=== PATIENT | male | born 1940 | race Caucasian/White ===

== ENCOUNTER 2024-11-04 22:13 | Emergency (ER) | payer OTHER, SELFPAY ==
[2024-11-04 22:21] VITALS: BP 146/82; PULSE 71; RESP 16; TEMP 36.6; O2SAT 96
--- NOTE | 2024-11-05 00:14 | ED.EAR ---
HPI - Ear Problem General Chief complaint: Ear Stated complaint: BLEEDING FROM LEFT EAR Time Seen by Provider: 11/04/24 23:49 Source: patient Mode of arrival: ambulatory Limitations: no limitations History of Present Illness HPI Narrative: This is a 78-year-old male that presents emergency department for bleeding from the left ear. He had a excision today by Dermatology at [place]. Has been bleeding since he got home. He is not on any blood thinners. Related Data Allergies Allergy/AdvReac Type Severity Reaction Status Date / Time No Known Allergies Allergy Unknown Verified 11/04/24 22:31 Review of Systems Review of Systems: CONSTITUTIONAL: Denies fever SKIN: Reports bleeding and pain All systems reviewed & are unremarkable except as noted in HPI and below PMFSH Past Medical History Medical History (Updated 11/05/24 @ 01:26 by Karin Blanchard PA-C) History of hypertension Social History Social History (Updated 11/05/24 @ 00:15 by Karin Blanchard PA-C) Alcohol intake: current Exam Narrative: GENERAL: Well-appearing, well-nourished, and in no acute distress. HEAD: Normocephalic, atraumatic. EYES: EOMI. ENT: Left TM pearly prado non-bulging. Left external auditory canal with small amount of blood present, coming from the outer ear. Outer ear with large excision, steadily oozing blood EXTREMITIES: Normal range of motion. No edema. SKIN: Warm, dry, no rash. NEURO: No focal deficits. Alert and oriented x3. PSYCH: Normal mood and affect Course Course Emergency Course: Patient's bleeding has stopped after Surgicel pressure Consultations Consultation #1: Spoke with patient's mottler machine feeder on-call. He may follow-up today any time after 7:00 a.m. for further evaluation and management Date: 11/04/24 Vital Signs Vital signs: Vital Signs Temperature 97.9 F 11/04/24 22:21 Pulse Rate 71 11/04/24 22:21 Respiratory Rate 16 11/04/24 22:21 Blood Pressure 146/82 H 11/04/24 22:21 Pulse Oximetry 96 11/04/24 22:21 Oxygen Delivery Room Air 11/04/24 22:21 Temperature 97.9 F 11/04/24 22:21 Pulse Rate 71 11/04/24 22:21 Respiratory Rate 16 11/04/24 22:21 Blood Pressure 146/82 H 11/04/24 22:21 Pulse Oximetry 96 11/04/24 22:21 Oxygen Delivery Room Air 11/04/24 22:21 Procedures Other Procedure Procedure 1: Other Procedure: Bleeding to the left external ear controlled with surgical Medical Decision Making MDM Narrative Medical decision making narrative: Patient presents to the emergency department for bleeding from excision site to the left outer ear. Bleeding was controlled with Surgicel and pressure. Bandage applied. Spoke with patient's mottler machine feeder on-call. He may follow-up today any time after 7:00 a.m. for further evaluation and management Vital Signs Vital Signs: Vital Signs Temperature 97.9 F 11/04/24 22:21 Pulse Rate 71 11/04/24 22:21 Respiratory Rate 16 11/04/24 22:21 Blood Pressure 146/82 H 11/04/24 22:21 Pulse Oximetry 96 11/04/24 22:21 Oxygen Delivery Room Air 11/04/24 22:21 Temperature 97.9 F 11/04/24 22:21 Pulse Rate 71 11/04/24 22:21 Respiratory Rate 16 11/04/24 22:21 Blood Pressure 146/82 H 11/04/24 22:21 Pulse Oximetry 96 11/04/24 22:21 Oxygen Delivery Room Air 11/04/24 22:21 Critical Care Time Critical Care Time Critical Care Time: No Discharge Plan Discharge Clinical Impression: Bleeding from left ear Patient Disposition: Home, Self-Care Condition: Improved Instructions: Acute Wounds (ED) Additional Instructions: Return to the emergency department if you experience bleeding and cannot control, or any other symptoms that are concerning to you If you have any further trouble with bleeding, hold pressure to the area for 15 minutes Follow-up with your mottler machine feeder. They said you could come in any time after 7:00 a.m. to be evaluated today Follow-up/Referrals: Yogi José MD [Primary Care Provider] -
[2024-11-05] MEDS: HYDROcodone/acetaminophen (*CRX) 5-325 MG TABLET 1 TAB PO (00:38)
[2024-11-05] MEDS: CELLULOSE OXIDIZED 2 x 14 INCH 1 PKT XX (00:39)
[2024-11-05 02:17] VITALS: BP 142/80; PULSE 73; RESP 17; O2SAT 97
--- OUTSIDE RECORDS SUMMARY | 2024-11-12 05:00 | XMS_ITS | Summary of Care ---
Author Organization [facility] Address [address] [place] [id number] Care Team Providers Care Wan Support Specialist Name Role Phone Mabel Mckeon Primary Care Physician Encounter [facility] Date(s): 10/17/20 - 10/17/20 [facility] [address] [address] Discharge Disposition: Home Attending Physician: Zhang Mejia MD Allergies, Adverse Reactions, Alerts Substance Reaction Severity Status sulfa drugs lips swelling Active Medications acetaminophen 500 mg oral tablet 1 Tab, Q6H, PO, 0 Number of Refills Start Date: 09/11/20 Status: Ordered amLODIPine 10 mg oral tablet 1 Tab, daily, PO, 30 Tab, 0 Number of Refills, TAB Start Date: 09/11/20 Status: Ordered cholecalciferol 1000 intl units (25 mcg) oral tablet 25 mcg, Q24H, PO, 0 Number of Refills Start Date: 09/11/20 Status: Ordered docusate sodium 100 mg oral tablet 1 Tab, BID, PO, 0 Number of Refills Start Date: 09/11/20 Status: Ordered folic acid 0.4 mg oral tablet 1 Tab, Q24H, PO, 0 Number of Refills Start Date: 09/11/20 Status: Ordered furosemide 20 mg oral tablet 1 Tab, daily, PO, 30 Tab, 0 Number of Refills, TAB Start Date: 09/11/20 Status: Ordered isosorbide mononitrate 10 mg oral tablet 1 Tab, BID, PO, 0 Number of Refills Start Date: 09/11/20 Status: Ordered melatonin 3 mg oral tablet, extended release 1 Tab, AT BEDTIME, PO, Maintenance, PRN, 09/11/20 18:13:00 SPINNING OPERATOR, 0 Number of Refills, for insomnia, ERT Start Date: 09/11/20 Status: Ordered metoprolol succinate 50 mg oral tablet, extended release 1 Tab, BID, PO, 30 Tab, 0 Number of Refills, ERT Start Date: 09/11/20 Status: Ordered MiraLax oral powder for reconstitution 17 gm, Q24H, PO, Maintenance, 0.5 packet each night, 09/11/20 18:15:00 SPINNING OPERATOR, 0 Number of Refills Start Date: 09/11/20 Status: Ordered nystatin 100,000 units/g topical powder 1 Apply, BID, TOP, Maintenance, 09/11/20 18:11:00 SPINNING OPERATOR, 0 Number of Refills Start Date: 09/11/20 Status: Ordered omeprazole 40 mg oral delayed release capsule 1 Cap, daily, PO, 30 Cap, 0 Number of Refills, EC CAP Start Date: 09/11/20 Status: Ordered potassium chloride 10 mEq oral tablet, extended release 1 Tab, Q24H, PO, 180 Tab, 0 Number of Refills, ERT Start Date: 09/11/20 Status: Ordered rosuvastatin 20 mg oral tablet 2 Tab, AT BEDTIME, PO, 30 Tab, 11 Number of Refills Start Date: 09/11/20 Status: Ordered sertraline 100 mg oral tablet 0.5 Tab, daily, PO, 30 Tab, 0 Number of Refills, TAB Start Date: 09/11/20 Status: Ordered tamsulosin 0.4 mg oral capsule 1 Cap, daily, PO, 90 Cap, 0 Number of Refills, CAP Start Date: 09/11/20 Status: Ordered traMADol 50 mg oral tablet 1 Tab, Q4H, PO, 60 Tab, PRN, 0 Number of Refills, for pain, TAB Start Date: 09/11/20 Status: Ordered warfarin 3 mg oral tablet 1 Tab, daily, PO, 30 Tab, 0 Number of Refills Start Date: 09/11/20 Status: Ordered Social History Social History Type Response
--- OUTSIDE RECORDS SUMMARY | 2024-11-12 05:00 | XMS_ITS | Summary of Care ---
Author Organization [facility] Address [address] [place] [phone] Care Team Providers Care Reservationist Name Role Phone Mabel Mckeon Primary Care Physician Encounter [facility] Date(s): 10/31/20 - 10/31/20 [facility] [id number] [place] [address] Discharge Disposition: Home Attending Physician: Zhang Mejia MD Problem List Condition Effective Dates Status Health Status Inform ant Acid reflux(Confirmed) Active Atrial fibrillation(Confirmed) Active CAD (coronary artery disease)(Confirmed) Active Depression(Confirmed) Active Heart murmur(Confirmed) Active High cholesterol(Confirmed) Active Hypertension(Confirmed) Active Right shoulder pain(Confirmed) Active Allergies, Adverse Reactions, Alerts Substance Reaction Severity Status sulfa drugs lips swelling Active Medications acetaminophen 500 mg oral tablet 1 Tab, Q6H, PO, PRN, 0 Number of Refills, pain Start Date: 09/11/20 Status: Ordered amLODIPine 10 mg oral tablet 1 Tab, daily, PO, 30 Tab, 0 Number of Refills, TAB Start Date: 09/11/20 Status: Ordered cholecalciferol 1000 intl units (25 mcg) oral tablet 25 mcg, Q24H, PO, 0 Number of Refills Start Date: 09/11/20 Status: Ordered clindamycin 300 mg oral capsule 1 Cap, Q6H, PO, 14 Day(s), 56 Cap, 11/14/20, 0 Number of Refills, 0, Route to Pharmacy Electronically, [facility], [place], [place], 198.1, cm, 10/31/20 8:29:00 APPLIED EXERCISE PHYSIOLOGIST, Height, 161.1, kg, 10/31/20 8:29:00 APPLIED EXERCISE PHYSIOLOGIST, Admission Weight Start Date: 10/31/20 Stop Date: 11/14/20 Status: Ordered docusate sodium 100 mg oral [...] of Refills Start Date: 09/11/20 Status: Ordered Lovenox 40 mg/0.4 mL injectable solution 40 mg, Q24H, SQ, 10 Day(s), 10 EA, 11/05/20, 0 Number of Refills, 0, Route to Pharmacy Electronically, [facility] #[id number], 198.1, cm, 10/25/20 16:09:00 APPLIED EXERCISE PHYSIOLOGIST, Height, 159, kg, 10/25/20 16:09:00 APPLIED EXERCISE PHYSIOLOGIST, Admission Weight Start Date: 10/26/20 Stop Date: 11/05/20 Status: Ordered melatonin 3 mg oral tablet, extended release 1 Tab, AT BEDTIME, PO, Maintenance, 09/11/20 18:13:00 APPLIED EXERCISE PHYSIOLOGIST, 0 Number of Refills, ERT Start Date: 09/11/20 Status: Ordered metoprolol succinate 50 mg oral tablet, extended release 1 Tab, BID, PO, 30 Tab, 0 Number of Refills, ERT Start Date: 09/11/20 Status: Ordered MiraLax oral powder for reconstitution 17 gm, Q24H, PO, Maintenance, 0.5 packet each night, 09/11/20 18:15:00 APPLIED EXERCISE PHYSIOLOGIST, 0 Number of Refills Start Date: 09/11/20 Status: Ordered Reserve 5 mg-325 mg oral tablet 1-2 Tab, Q6H, PO, 12 Tab, Maintenance, PRN, 10/31/20 9:54:00 APPLIED EXERCISE PHYSIOLOGIST, 0 Number of Refills, 0, for pain,Route to Pharmacy Electronically, [facility], [place], [place], TAB, 198.1, cm, 10/31/20 8:29:00CST, Height, 161.1, kg, 10/31/20 8:29:00 APPLIED EXERCISE PHYSIOLOGIST, Admis... Start Date: 10/31/20 Status: Ordered nystatin 100,000 units/g topical powder 1 Apply, BID, TOP, Maintenance, 09/11/20 18:11:00 APPLIED EXERCISE PHYSIOLOGIST, 0 Number of Refills Start Date: 09/11/20 Status: Ordered omeprazole 40 mg oral delayed release capsule 1 Cap, daily, PO, 30 Cap, 0 Number of Refills, EC CAP Start Date: 09/11/20 Status: Ordered oxygen 10/25/20 16:12:00 APPLIED EXERCISE PHYSIOLOGIST, 2 LPM Start Date: 10/25/20 Status: Ordered potassium chloride 10 mEq oral [...]
--- OUTSIDE RECORDS SUMMARY | 2024-11-12 05:00 | XMS_ITS | Summary of Care ---
Author Organization [facility] Address [address] [place] [phone] Care Team Providers Care Fellmongering Machine Operator Name Role Phone Mabel Mckeon Primary Care Physician Encounter [facility] Date(s): 02/08/21 - 02/08/21 [facility] [address] [address] Discharge Disposition: Home Attending Physician: [...] Tab, AT BEDTIME, PO, Maintenance, 09/11/20 18:13:00 MEN'S FURNISHINGS SALESPERSON, 0 Number of Refills, ERT Start Date: 09/11/20 Status: Ordered metoprolol succinate 50 mg oral tablet, extended release 1 Tab, BID, PO, 30 Tab, 0 Number of Refills, ERT Start Date: 09/11/20 Status: Ordered MiraLax oral powder for reconstitution 17 gm, Q24H, PO, Maintenance, 0.5 packet each night, 09/11/20 18:15:00 MEN'S FURNISHINGS SALESPERSON, 0 Number of Refills Start Date: 09/11/20 Status: Ordered Coalgood 5 mg-325 mg oral tablet 1-2 Tab, Q6H, PO, 12 Tab, Maintenance, PRN, 10/31/20 9:54:00 MEN'S FURNISHINGS SALESPERSON, 0 Number of Refills, 0, for pain,Route to Pharmacy Electronically, [facility], [place], [place], TAB, 198.1, cm, 10/31/20 8:29:00CST, Height, 161.1, kg, 10/31/20 8:29:00 MEN'S FURNISHINGS SALESPERSON, Admis... Start Date: 10/31/20 Status: Ordered nystatin 100,000 units/g topical powder 1 Apply, BID, TOP, Maintenance, 09/11/20 18:11:00 MEN'S FURNISHINGS SALESPERSON, 0 Number of Refills Start Date: 09/11/20 Status: Ordered omeprazole 40 mg oral delayed release capsule 1 Cap, daily, PO, 30 Cap, 0 Number of Refills, EC CAP Start Date: 09/11/20 Status: Ordered oxygen 10/25/20 16:12:00 MEN'S FURNISHINGS SALESPERSON, 2 LPM Start Date: 10/25/20 Status: Ordered [...]
--- OUTSIDE RECORDS SUMMARY | 2024-11-12 05:00 | XMS_ITS | Summary of Care ---
Author Organization [facility] Address [address] [place] [phone] Care Team Providers Care Telesales Team Leader Name Role Phone Mabel Mckeon Primary Care Physician Encounter [facility] Date(s): 02/27/21 - 03/02/21 [facility] AT [address] [phone] Encounter Diagnosis Cellulitis, leg(Discharge Diagnosis) - 03/02/21 Discharge Disposition: Home with Home Health Attending Physician: Antoni Vallejo MD Admitting Physician: Antoni Vallejo MD Problem List Condition Effective Dates Status [...] Refills, pain Start Date: 09/11/20 Status: Ordered cholecalciferol 1000 intl units (25 mcg) oral tablet 25 mcg, Q24H, PO, 0 Number of Refills Start Date: 09/11/20 Status: Ordered diclofenac 1% topical gel 200 gm, QID, TOP, 24,000 gm, Maintenance, 03/02/21 10:51:00 CDT, 0 Number of Refills, 0, Route to Pharmacy Electronically, [facility], [place], [place], GEL, 198.1, cm, 02/27/21 19:04:00 CDT, Height, 171.5, kg, 02/27/21 19:04:00 CDT, Admission Weight Start Date: 03/02/21 Status: Ordered docusate sodium 100 mg oral tablet 1 Tab, BID, PO, 0 Number of Refills Start Date: 09/11/20 Status: Ordered folic acid 0.4 mg oral tablet 1 Tab, Q24H, PO, 0 Number of Refills Start Date: 09/11/20 Status: Ordered furosemide 20 mg oral tablet 2 Tab, daily, PO, 30 Tab, 0 Number of Refills, TAB Start Date: 09/11/20 Status: Ordered isosorbide mononitrate 10 mg oral tablet 1 Tab, BID, PO, 0 Number of Refills Start Date: 09/11/20 Status: Ordered linezolid 600 mg oral tablet 1 Tab, Q12H, PO, 7 Day(s), 14 Tab, 03/09/21, Can resume clindamycin once linezolid done, 0 Number of Refills, 0, Route to Pharmacy Electronically, [facility], [place], [place], TAB, 198.1, cm, 02/27/21 19:04:00 CDT, Height, 171.5, kg, 02/27/21 19:0... Start Date: 03/02/21 Stop Date: 03/09/21 Status: Ordered melatonin 3 mg oral tablet, extended release 1 Tab, AT BEDTIME, PO, Maintenance, 09/11/20 18:13:00 ELDERLY SITTER, 0 Number of Refills, ERT Start Date: 09/11/20 Status: Ordered metoprolol succinate 25 mg oral capsule, extended release 3 Cap, Q24H, PO, 270 Cap, 0 Number of Refills, 0, Route to Pharmacy Electronically, [facility], [place], [place], 198.1, cm, 02/27/21 19:04:00 CDT, Height, 171.5, kg, 02/27/21 19:04:00 CDT, Admission Weight Start Date: 03/02/21 Status: Ordered MiraLax oral powder for reconstitution 17 gm, Q24H, PO, Maintenance, 0.5 packet each night, 09/11/20 18:15:00 ELDERLY SITTER, 0 Number of Refills Start Date: 09/11/20 Status: Ordered Rio 5 mg-325 mg oral tablet 1-2 Tab, Q6H, PO, 12 Tab, Maintenance, PRN, 10/31/20 9:54:00 ELDERLY SITTER, 0 Number of Refills, 0, for pain,Route to Pharmacy Electronically, [facility], [place], [place], TAB, 198.1, cm, 10/31/20 8:29:00CST, Height, 161.1, kg, 10/31/20 8:29:00 ELDERLY SITTER, Admis... Start Date: 10/31/20 Status: Ordered nystatin 100,000 units/g topical powder 1 Apply, BID, TOP, Maintenance, 09/11/20 18:11:00 ELDERLY SITTER, 0 Number of Refills Start Date: 09/11/20 Status: Ordered omeprazole 40 mg oral delayed release capsule 1 Cap, daily, PO, 30 Cap, 0 Number of Refills, EC CAP Start Date: 09/11/20 Status: Ordered oxygen 10/25/20 16:12:00 ELDERLY SITTER, 2 LPM Start Date: 10/25/20 Status: Ordered potassium chloride 10 mEq oral tablet, extended release 1 Tab, Q24H, PO, 180 Tab, 0 Number of Refills, ERT Start Date: 09/11/20 Status: Ordered rosuvastatin 20 mg oral tablet 2 Tab, AT BEDTIME, PO, 30 Tab, 11 Number of Refills Start Date: 09/11/20 Status: Ordered sertraline 100 mg oral tablet 0.5 Tab, daily, PO, 30 Tab, Hold until linezolid is done, 0 Number of Refills, TAB Start Date: 09/11/20 Status: Ordered tamsulosin 0.4 mg oral capsule 1 Cap, daily, PO, 90 Cap, 0 Number of Refills, CAP Start Date: 09/11/20 Status: Ordered warfarin 3 mg oral tablet See Instructions, 4mg MWF, 3mg TThSaSu, 0 Number of Refills, Instructions Replace Required Details Start Date: 09/11/20 Status: Ordered Social History Social History Type Response
--- OUTSIDE RECORDS SUMMARY | 2024-11-12 05:00 | XMS_ITS | Encounter Summary ---
Author Organization [facility] Address [address] [place] [phone] Care Team Providers Care Coastal/Harbor Defense Officer Name Role Phone [facility], External Provider Primary Care Provider U navailable Reason for Visit * Auth/Cert Specialty Diagnoses / Procedures Referred By Vidhi t Referred To Contact Critical Care Medicine [facility] [address] [place] [address] Referral ID Status Reason Start Date Expiration Date Visits Re quested Visits Authorized [id number] 1 1 Encounter Details Date Type Department Care Team (Latest Contact Info) Description 12/22/2013 11:45 AM [facility] [[email or web address]] - 12/22/2013 11:59 PM [facility] [[email or web address] Hospital Encounter [facility] [address] [place] [address] Discharge Disposition: Home or Self Care Social History Tobacco Use Types Packs/Day Years Used Date Smoking Tobacco: Every Day Cigarettes Alcohol Use Standard Drinks/Week Comments Yes 0 (1 standard drink = 0.6 oz pur e alcohol) 2-4 beers/day Sex and Gender Information Value Date Recorded Sex Assigned at Not on file Gender Identity Not on file Sexual Orientation Not on file documented as of this encounter Medications at Time of Discharge Medication Sig Dispensed Refills Start Date End Date oxyCODONE (ROXICODONE) 5 mg tablet Take 1 Tab by mouth every 8 hours as needed for Pain or Pain, Moderate. 30 Tab 0 12/23/2013 sodium chloride 1 gram tablet Take 1 Tab by mouth 3 times daily. 60 Tab 1 12/23/2013 atenolol (TENORMIN) 50 mg tablet Take 1 Tab by mouth daily. 30 Tab 0 12/23/2013 ipratropium-albuterol (COMBIVENT RESPIMAT) 20-100 mcg/actuation Aerosol Take 1 Puff by inhalation every 6 hours as needed for Wheezing. budesonide-formoterol (SYMBICORT) 160-4.5 mcg/actuation HFA Aerosol Inhaler Take 2 Puffs by inhalation 2 times daily. aspirin (VAN) 325 mg tablet Take 325 mg by mouth daily. cilostazol (PLETAL) 100 mg Tablet Take 100 mg by mouth 2 times daily before meals. 10/25/2013 simvastatin (ZOCOR) 80 mg tablet Take 80 mg by mouth Daily LATE. atenolol (TENORMIN) 100 mg tablet Take 100 mg by mouth Daily LATE. 12/23/2013 lisinopril (PRINIVIL) 40 mg tablet Take 40 mg by mouth daily. 12/23/2013 hydrochlorothiazide (MICROZIDE) 12.5 mg capsule Take 12.5 mg by mouth daily. 12/23/2013 documented as of this encounter Plan of Treatment Not on file documented as of this encounter Procedures Procedure Name Priority Date/Time Associated Diagnosis Comments XR CERVICAL SPINE 2 OR 3 VIEWS Routine 12/22/2013 1:30 PM FACER OPERATOR documented in this encounter Results * XR CERVICAL SPINE 2 OR 3 VIEWS (12/22/2013 1:30 PM FACER OPERATOR) Anatomical Region Laterality Modality Spine Computed Radiogr aphy 12/22/2013 1:20 PM FACER OPERATOR Impressions 12/23/2013 2:01 PM FACER OPERATOR IMPRESSION: Mild degenerative change. No distinct fracture. Dictated from [place], [place] Narrative 12/23/2013 2:01 PM FACER OPERATOR EXAMINATION: CERVICAL SPINE, 3 VIEWS, 12/22/2013 CLINICAL HISTORY: Neck pain. FINDINGS: Examination of the cervical spine fails to demonstrate evidence of fracture, dislocation, or subluxation. There is minimal disc space narrowing at C2-C3. Procedure Note Jeff Maya MD - 12/23/2013 EXAMINATION: CERVICAL SPINE, 3 VIEWS, 12/22/2013 CLINICAL HISTORY: Neck pain. FINDINGS: Examination of the cervical spine fails to demonstrate evidence of fracture, dislocation, or subluxation. There is minimal disc space narrowing at C2-C3. IMPRESSION IMPRESSION: Mild degenerative change. No distinct fracture. Dictated from [place], [place] Bárbara Lewis NP DIAGNOSTIC IMAGING ORDERABLES documented in this encounter Visit Diagnoses Not on filedocumented in this encounter Care Teams Coastal/Harbor Defense Officer Relationship Specialty Start Date End Date [facility], External Provider [address] [place] [address] PCP - General 12/20/13 documented as of this encounter
--- OUTSIDE RECORDS SUMMARY | 2024-11-12 05:00 | XMS_ITS | Encounter Summary ---
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 Scanning ECG ORDERABLES * (ABNORMAL) BASIC METABOLIC PANEL (12/23/2013 6:20 AM CRAB FISHER) SODIUM 128(L) 135 - 145 mmol/L [facility] POTASSIUM 3.7 3.5 - 4.9 mmol/L [facility] CHLORIDE 92(L) 96 - 108 mmol/L [facility] CO2 26 22 - 30 mmol/L [facility] CALCIUM 8.4(L) 8.6 - 10.2 mg/dL [facility] BUN 7 6 - 20 mg/dL [facility] CREATININE 0.61(L) 0.67 - 1.17 mg/dL [facility] GLUCOSE 113(H) 65 - 99 mg/dL [facility] GFR, >60 >=60 mL/min/1. 7 sq meter [facility] GFR >60 >=60 mL/min/1. 7 sq meter [facility] Comment: GFR is calculated using the IDMS-Traceable Modification of Diet in Renal Disease (MDRD) Study formula and is only valid for patients 18 years or older. Further interpretative information is available in the Laboratory Services Policy Manual on the [facility] [place], [place] Intranet at: [email or web address] [email or web address]/ Blood specimen (specimen) 12/23/2013 6:20 AM CRAB FISHER 12/23/2013 6:43 AM CRAB FISHER Rizwan Medellin DANIEL CHEMISTRY ORDERABL ES [facility] CLIA# [id number] [address] [place] [address] * (ABNORMAL) CBC WITH DIFFERENTIAL (12/23/2013 6:20 AM CRAB FISHER) WBC 13.4(H) 4.0 - 9.8 K/uL [facility] RBC 3.00(L) 4.50 - 5.40 M/uL [facility] HEMOGLOBIN 10.2(L) 13.6 - 16.5 g/dL [facility] HEMATOCRIT 29.3(L) 40.0 - 48.0 % [facility] MCV 97.7 82.0 - 99.0 fL [facility] MCH 34.0(H) 27.2 - 32.6 pg [facility] MCHC 34.8 31.5 - 35.5 % [facility] PLATELETS 209 140 - 350 K/uL [facility] MPV 9.0(L) 9.3 - 12.4 fL [facility] RDW 12.9 11.5 - 14.5 % [facility] RDW-STDEV 45.9 37.1 - 48.7 fL [facility] NEUTROPHILS, SEG 83(H) 45 - 70 % [facility] . [facility] BANDS 1 0 - 5 % [facility] LYMPHOCYTES 5(L) 16 - 45 % [facility] ATYPICAL LYMPHOCYTE 4 0 - 5 % [facility] MONOCYTES 6 3 - 13 % [facility] . [facility] EOSINOPHILS 1 0 - 7 % [facility] . [facility] BASOPHILS 0 0 - 2 % [facility] PLATELET EST. Consistent w/ count Normal [facility] NEUTROPHIL ABSOLUTE 11.26(H) 1.90 - 7.00 K/uL [facility] LYMPHOCYTE ABSOLUTE 1.21 0.70 - 4.50 K/uL [facility] MONOCYTE ABSOLUTE 0.80 0.10 - 1.30 K/uL [facility] EOSINOPHIL ABSOLUTE 0.13 0.00 - 0.70 K/uL [facility] . [facility] BASOPHILS ABSOLUTE 0.00 0.00 - 0.20 K/uL [facility] RBC MORPHOLOGY Normal Normal [facility] GIANT PLATELETS Present [facility] REVIEWED ON SMEAR Plt reviewed [facility] Blood specimen (specimen) 12/23/2013 6:20 AM CRAB FISHER 12/23/2013 6:43 AM CRAB FISHER Rizwan Medellin NP HEMATOLOGY ORDERAB LES Performing Organization Address City/State/[facility] Co de Phone Number [facility] CLIA# [id number] [address] [place] [address] * (ABNORMAL) URINALYSIS (12/22/2013 6:15 PM CRAB FISHER) COLOR UA Yellow [facility] CLARITY UA Clear Clear [facility] SPECIFIC GRAVITY UA 1.021 1.001 - 1.035 [facility] PH UA 5.5 5.0 - 8.0 [facility] LEUKOCYTE ESTERASE UA Negative Negative [facility] NITRITE UA Negative Negative [facility] PROTEIN UA Trace(A) Negative [facility] GLUCOSE UA 2+(A) Negative [facility] KETONES UA Negative Negative [facility] UROBILINOGEN UA 2(H) <=1 mg/dL [facility] BILIRUBIN UA Negative Negative [facility] - . [facility] BLOOD UA Trace(A) Negative [facility] - . [facility] WBC URINE 1 0 - 3 /HPF [facility] RBC, URINE 1 0 - 3 /HPF [facility] HYALINE CAST 3(H) 0 - 2 /LPF [facility] 12/22/2013 6:15 PM CRAB FISHER 12/22/2013 6:28 PM CRAB FISHER Comment:URINE VOIDED Ramsey Rojas DO URINE ORDERABLES Performing Organization Address [facility] Co de Phone Number [facility] CLIA# [id number] [address] [place] [address] * URINALYSIS WITH REFLEX CULTURE (12/22/2013 6:15 PM CRAB FISHER) URINE CULTURE ORDER Not indicated [facility] Comment: Criteria for a reflex culture include one or more of the following: ??Abnormal nitrite, leukocyte esterase, WBCs or RBCs. ??Lack of qualifying criteria does not exclude the possiblity of a urinary tract infection. ??Dilute urine, drug interference, etc. may decrease the sensitivity of the criteria analytes. Urine, clean catch 12/22/2013 6:15 PM CRAB FISHER 12/22/2013 6:28 PM CRAB FISHER Comment:URINE VOIDED Ramsey Sidney Rojas DO URINE ORDERABLES Performing Organization Address [facility] Co de Phone Number [facility]# [id number] [address] [place] [address] * XR CERVICAL SPINE 2 OR 3 VIEWS (12/22/2013 1:30 PM CRAB FISHER) Anatomical Region Laterality Modality Spine Computed Radiogr aphy 12/22/2013 1:20 PM CRAB FISHER Impressions 12/23/2013 2:01 PM CRAB FISHER IMPRESSION: Mild degenerative change. No distinct fracture. Dictated from [facility], [place] Narrative 12/23/2013 2:01 PM CRAB FISHER EXAMINATION: CERVICAL SPINE, 3 VIEWS, 12/22/2013 CLINICAL [...] degenerative change. No distinct fracture. Dictated from [place], [place] Bárbara Lewis NP DIAGNOSTIC IMAGING ORDERABLES * ECHO COMPLETE (12/22/2013 9:01 AM CRAB FISHER) EJECTION FRACTION INTERFACE SYSTEM 12/22/2013 8:32 AM CRAB FISHER Narrative INTERFACE SYSTEM - 12/22/2013 10:21 AM CRAB FISHER [address] [address] www.[facility] centerDream Dinners[facility]/stlouismo Transthoracic Echocardiography Patient: ? Eliza Jonas MRN: ? [id number] Study ID: ?[id number] Gender: ?M : ? 1940 Age: ? 73 Race: ?CAU Height ? 172.7cm Study Date: ?12/22/2013 Weight: ?85.3kg Access. #: ? [id number] BP: ?100 / 60 *Referring Physician:* Rizwan Medellin *Ordering Physician:* ??Rizwan Medellin Set Up Mechanic Stamping Machines: ? LD Indications: Syncope / Near syncope. STUDY CONCLUSIONS: SUMMARY: - Left ventricle: The cavity size was normal. Wall thickness ??was increased. Global systolic function was normal. Wall ??motion was normal; there were no regional wall motion ??abnormalities. Diastolic function assessment consistent ??with abnormal left ventricular relaxation (grade 1 ??diastolic dysfunction). - Left atrium: The atrium was dilated. - Right ventricle: The cavity size was normal. Systolic ??function was normal. Cardiac Anatomy: LEFT VENTRICLE: ??The cavity size was normal. Wall thickness was increased. Global systolic function was normal. Wall motion was normal; there were no regional wall motion abnormalities. Diastolic function assessment consistent with abnormal left ventricular relaxation (grade 1 diastolic dysfunction). AORTIC VALVE: ?? Trileaflet; mildly thickened, mildly calcified leaflets. Cusp separation was normal. ??Doppler: Transvalvular velocity was within the normal range. ??No significant regurgitation. ?Peak velocity ratio of LVOT to aortic valve: 0.78. Valve area: 3.82cm\S\2 (Vmax). Indexed valve area: 1.87cm\S\2/m\S\2 (Vmax). ?Mean gradient: 7mm Hg (S). Peak gradient: 11mm Hg (S). AORTA: ??Aortic root: The aortic root was normal in size. MITRAL VALVE: ?? Structurally normal valve. ?? Leaflet separation was normal. Mobility was not restricted. No echocardiographic evidence for prolapse. ??Doppler: ?? No significant regurgitation. LEFT ATRIUM: ??The atrium was dilated. RIGHT VENTRICLE: ??The cavity size was normal. Systolic function was normal. PULMONIC VALVE: ?? Structurally normal valve. ?Doppler: No significant regurgitation. TRICUSPID VALVE: ?? Structurally normal valve. ?Doppler: No significant regurgitation. PULMONARY ARTERY: ?? The tricuspid jet envelope definition was inadequate for estimation of RV systolic pressure. There were no indirect findings (abnormal RV volume or geometry, altered pulmonary flow velocity profile, or leftward septal displacement) to suggest moderate or severe pulmonary hypertension. RIGHT ATRIUM: ??The atrium was normal in size. PERICARDIUM: ??There was no pericardial effusion. SYSTEMIC VEINS: Inferior vena cava: The vessel was normal in size. 2D measurements ?Normal Left ventricle LV internal dimension, ED, chordal ?*40.4 mm ? 43-52 level, PLAX LV internal dimension, ES, chordal ? 32.2 mm ? 23-38 level, PLAX Fractional shortening, chordal level, ?? *20 % ?>29 PLAX LV posterior wall thickness, ED ?14.8 mm ? ------- IVS/LVPW ratio, ED ? 1.17 ?<1.3 Volume, ED, MOD, 2-plane ? 88 ml ? 62-170 Volume, ES, MOD, 2-plane ? 27 ml ? ------- Ejection fraction, MOD, 2-plane ?69 % ?------- Volume index, ED, MOD, 2-plane ? 43 ml/m\S\2 ?? ------- Volume index, ES, MOD, 2-plane ? 13 ml/m\S\2 ?? ------- Ventricular septum Septal thickness, ED ? 17.3 mm ? ------- LVOT Area ? 4.91 cm\S\2 ? ------- Aorta Root diameter, ED ?34 mm ? ------- Left atrium Anterior-posterior dimension ? 37 mm ? ------- Anterior-posterior dimension index ? 1.81 cm/m\S\2 ?? <2.2 Doppler measurements ? Normal Left ventricle Ea, lateral annulus, tissue Doppler ?6.03 cm/s ? ------- E/Ea, lateral annulus, tissue Doppler ??10.9 ?------- LVOT Peak velocity, S ?130 cm/s ? ------- Peak gradient, S ?7 mm Hg ?------- Aortic valve Peak velocity, S ?167 cm/s ? ------- Mean velocity, S ?120 cm/s ? ------- VTI, S ? 33 cm ? ------- Mean gradient, S ?7 mm Hg ?------- Peak gradient, S ? 11 mm Hg ?------- Peak velocity ratio, LVOT/AV ? 0.78 ?------- Valve area, Vmax ? 3.82 cm\S\2 ? ------- Valve area index, Vmax ? 1.87 cm\S\2/m\S\2 ------- Mitral valve Peak E-wave velocity ? 65.6 cm/s ? ------- Peak A-wave velocity ?100 cm/s ? ------- Deceleration time ?*327 ms ? 150-230 Peak E/A ratio ? 0.66 ?------- Pulmonic valve Peak velocity, S ?142 cm/s ? ------- Legend: Mean values are shown as u=mean value. Asterisk (*) feliz values outside specified normal range. Procedure data: Procedure information: ??Transthoracic echocardiography. Scanning was performed from the parasternal, apical, and subcostal acoustic windows. ?Transthoracic echocardiography. ??Complete 2D, complete spectral Doppler, and color Doppler. ??Birthdate: ??Patient birthdate: 1940. ??Age: ??Patient is 73yr old. ??Sex: ??Gender: male. Height: ??Height: 172.7cm. Height: 68in. ??Weight: ??Weight: 85.3kg. Weight: 187.6lb. ??Body mass index: ??BMI: 28.6kg/m\S\2. Body surface area: ?BSA: 2.04m\S\2. ??Blood pressure: 100/60. ??Study date: ??Study date: December 22, 2013. Prepared and Electronically Authenticated Zhang Payton M.D. [id number] Procedure Note Zhang Payton MD - 12/22/[address] [address] www.[facility] centerDream Dinnerscitizens memorial healthcare/emmanuel Transthoracic Echocardiography Patient: Eliza Jonas Study ID: [id number] Gender: M : 1940 Age: 73 Race: TOREY Height 172.7cm Study Date: 12/22/2013 Weight: 85.3kg Access. #: [id number] BP: 100 / 60 *Referring Physician:* Rizwan Medellin *Ordering Physician:* Rizwan Medellin Set Up Mechanic Stamping Machines: ATIF Indications: Syncope / Near syncope. STUDY CONCLUSIONS: SUMMARY: - Left ventricle: The cavity size was normal. Wall thickness was increased. Global systolic function was normal. Wall motion was normal; there were no regional wall motion abnormalities. Diastolic function assessment consistent with abnormal left ventricular relaxation (grade 1 diastolic dysfunction). - Left atrium: The atrium was dilated. - Right ventricle: The cavity size was normal. Systolic function was normal. Cardiac Anatomy: LEFT VENTRICLE: The cavity size was normal. Wall thickness was increased. Global systolic function was normal. Wall motion was normal; there were no regional wall motion abnormalities. Diastolic function assessment consistent with abnormal left ventricular relaxation (grade 1 diastolic dysfunction). AORTIC VALVE: Trileaflet; mildly thickened, mildly calcified leaflets. Cusp separation was normal. Doppler: Transvalvular velocity was within the normal range. No significant regurgitation. Peak velocity ratio of LVOT to aortic valve: 0.78. Valve area: 3.82cm\S\2 (Vmax). Indexed valve area: 1.87cm\S\2/m\S\2 (Vmax). Mean gradient: 7mm Hg (S). Peak gradient: 11mm Hg (S). AORTA: Aortic root: The aortic root was normal in size. MITRAL VALVE: Structurally normal valve. Leaflet separation was normal. Mobility was not restricted. No echocardiographic evidence for prolapse. Doppler: No significant regurgitation. LEFT ATRIUM: The atrium was dilated. RIGHT VENTRICLE: The cavity size was normal. Systolic function was normal. PULMONIC VALVE: Structurally normal valve. Doppler: No significant regurgitation. TRICUSPID VALVE: Structurally normal valve. Doppler: No significant regurgitation. PULMONARY ARTERY: The tricuspid jet envelope definition was inadequate for estimation of RV systolic pressure. There were no indirect findings (abnormal RV volume or geometry, altered pulmonary flow velocity profile, or leftward septal displacement) to suggest moderate or severe pulmonary hypertension. RIGHT ATRIUM: The atrium was normal in size. PERICARDIUM: There was no pericardial effusion. SYSTEMIC VEINS: Inferior vena cava: The vessel was normal in size. 2D measurements Normal Left ventricle LV internal dimension, ED, chordal *40.4 mm 43-52 level, PLAX LV internal dimension, ES, chordal 32.2 mm 23-38 level, PLAX Fractional shortening, chordal level, *20 % >29 PLAX LV posterior wall thickness, ED 14.8 mm ------- IVS/LVPW ratio, ED 1.17 <1.3 Volume, ED, MOD, 2-plane 88 ml 62-170 Volume, ES, MOD, 2-plane 27 ml ------- Ejection fraction, MOD, 2-plane 69 % ------- Volume index, ED, MOD, 2-plane 43 ml/m\S\2 ------- Volume index, ES, MOD, 2-plane 13 ml/m\S\2 ------- Ventricular septum Septal thickness, ED 17.3 mm ------- LVOT Area 4.91 cm\S\2 ------- Aorta Root diameter, ED 34 mm ------- Left atrium Anterior-posterior dimension 37 mm ------- Anterior-posterior dimension index 1.81 cm/m\S\2 <2.2 Doppler measurements Normal Left ventricle Ea, lateral annulus, tissue Doppler 6.03 cm/s ------- E/Ea, lateral annulus, tissue Doppler 10.9 ------- LVOT Peak velocity, S 130 cm/s ------- Peak gradient, S 7 mm Hg ------- Aortic valve Peak velocity, S 167 cm/s ------- Mean velocity, S 120 cm/s ------- VTI, S 33 cm ------- Mean gradient, S 7 mm Hg ------- Peak gradient, S 11 mm Hg ------- Peak velocity ratio, LVOT/AV 0.78 ------- Valve area, Vmax 3.82 cm\S\2 ------- Valve area index, Vmax 1.87 cm\S\2/m\S\2 ------- Mitral valve Peak E-wave velocity 65.6 cm/s ------- Peak A-wave velocity 100 cm/s ------- Deceleration time *327 ms 150-230 Peak E/A ratio 0.66 ------- Pulmonic valve Peak velocity, S 142 cm/s ------- Legend: Mean values are shown as u=mean value. Asterisk (*) feliz values outside specified normal range. Procedure data: Procedure information: Transthoracic echocardiography. Scanning was performed from the parasternal, apical, and subcostal acoustic windows. Transthoracic echocardiography. Complete 2D, complete spectral Doppler, and color Doppler. Birthdate: Patient birthdate: 1940. Age: Patient is 73yr old. Sex: Gender: male. Height: Height: 172.7cm. Height: 68in. Weight: Weight: 85.3kg. Weight: 187.6lb. Body mass index: BMI: 28.6kg/m\S\2. Body surface area: BSA: 2.04m\S\2. Blood pressure: 100/60. Study date: Study date: December 22, 2013. Prepared and Electronically Authenticated Zhang Payton M.D. [id number] Rizwan Medellin NP ORDERABLES INTERFACE SYSTEM Refer to clinic/hospital department * (ABNORMAL) BASIC METABOLIC PANEL (12/22/2013 6:45 AM CRAB FISHER) SODIUM 127(L) 135 - 145 mmol/L [facility] POTASSIUM 3.8 3.5 - 4.9 mmol/L [facility] CHLORIDE 92(L) 96 - 108 mmol/L [facility] CO2 24 22 - 30 mmol/L [facility] CALCIUM 8.5(L) 8.6 - 10.2 mg/dL [facility] BUN 8 6 - 20 mg/dL [facility] CREATININE 0.67 0.67 - 1.17 mg/dL [facility] GLUCOSE 125(H) 65 - 99 mg/dL [facility] GFR, >60 >=60 mL/min/1. 7 sq meter [facility] GFR >60 >=60 mL/min/1. 7 sq meter [facility] Comment: GFR is calculated using the IDMS-Traceable Modification of Diet in Renal Disease (MDRD) Study formula and is only valid for patients 18 years or older. Further interpretative information is available in the Laboratory Services Policy Manual on the [facility] [place], [place] Sell My Timeshare NOWet at: [email or web address] [place].[facility].Singularu/ Blood specimen (specimen) 12/22/2013 6:45 AM CRAB FISHER 12/22/2013 6:53 AM CRAB FISHER Rizwan Medellin NP CHEMISTRY ORDERABL ES [facility] CLIA# [id number] [address] [place], [place] [address] * (ABNORMAL) CBC WITH DIFFERENTIAL (12/22/2013 6:45 AM CRAB FISHER) WBC 13.5(H) 4.0 - 9.8 K/uL [facility] - . [facility] RBC 3.03(L) 4.50 - 5.40 M/uL [facility] - . [facility] HEMOGLOBIN 10.6(L) 13.6 - 16.5 g/dL [facility] - . [facility] HEMATOCRIT 29.6(L) 40.0 - 48.0 % [facility] - . [facility] MCV 97.7 82.0 - 99.0 fL [facility] - . [facility] MCH 35.0(H) 27.2 - 32.6 pg [facility] - . [facility] MCHC 35.8(H) 31.5 - 35.5 % [facility] - . [facility] PLATELETS 194 140 - 350 K/uL [facility] - . [facility] MPV 9.2(L) 9.3 - 12.4 fL [facility] - . [facility] RDW 13.0 11.5 - 14.5 % [facility] - . [facility] RDW-STDEV 46.2 37.1 - 48.7 fL [facility] - . [facility] NEUTROPHILS 77(H) 45 - 70 % [facility] . [facility] LYMPHOCYTES 11(L) 16 - 45 % [facility] . [facility] MONOCYTES 11 3 - 13 % [facility] . [facility] EOSINOPHILS 0 0 - 7 % [facility] BASOPHILS 0 0 - 2 % [facility] NEUTROPHIL ABSOLUTE 10.40(H) 1.90 - 7.00 K/uL [facility] - . [facility] LYMPHOCYTE ABSOLUTE 1.53 0.70 - 4.50 K/uL [facility] MONOCYTE ABSOLUTE 1.53(H) 0.10 - 1.30 K/uL [facility] EOSINOPHIL ABSOLUTE 0.02 0.00 - 0.70 K/uL [facility] BASOPHILS ABSOLUTE 0.02 0.00 - 0.20 K/uL [facility] Blood specimen (specimen) 12/22/2013 6:45 AM CRAB FISHER 12/22/2013 6:53 AM CRAB FISHER Rizwan Medellin NP HEMATOLOGY ORDERAB LES [facility] CLIA# [id number] [address] [place] [address] * (ABNORMAL) BASIC METABOLIC PANEL (12/21/2013 7:30 AM CRAB FISHER) SODIUM 130(L) 135 - 145 mmol/L [facility] POTASSIUM 3.8 3.5 - 4.9 mmol/L [facility] CHLORIDE 99 96 - 108 mmol/L [facility] CO2 23 22 - 30 mmol/L [facility] CALCIUM 8.0(L) 8.6 - 10.2 mg/dL [facility] BUN 9 6 - 20 mg/dL [facility] CREATININE 0.69 0.67 - 1.17 mg/dL [facility] GLUCOSE 110(H) 65 - 99 mg/dL [facility] GFR, >60 >=60 mL/min/1. 7 sq meter [facility] GFR >60 >=60 mL/min/1. 7 sq meter [facility] Comment: GFR is calculated using the IDMS-Traceable Modification of Diet in Renal Disease (MDRD) Study formula and is only valid for patients 18 years or older. Further interpretative information is available in the Laboratory Services Policy Manual on the [facility] [place], [place] Intranet at: [email or web address] medical [email or web address] [email or web address]/ Blood specimen (specimen) 12/21/2013 7:30 AM CRAB FISHER 12/21/2013 7:36 AM CRAB FISHER Marino Winslow MD CHEMISTRY ORDERABLES [facility] SERVICES [facility] CLIA# [id number] [address] [facility] [place] [address] * (ABNORMAL) CBC WITH DIFFERENTIAL (12/21/2013 7:30 AM CRAB FISHER) WBC 8.2 4.0 - 9.8 K/uL [facility] RBC 3.47(L) 4.50 - 5.40 M/uL [facility] HEMOGLOBIN 11.8(L) 13.6 - 16.5 g/dL [facility] HEMATOCRIT 33.8(L) 40.0 - 48.0 % [facility] MCV 97.4 82.0 - 99.0 fL [facility] Comment:verified by re-draw MCH 34.0(H) 27.2 - 32.6 pg [facility] MCHC 34.9 31.5 - 35.5 % [facility] PLATELETS 202 140 - 350 K/uL [facility] MPV 9.0(L) 9.3 - 12.4 fL [facility] RDW 13.0 11.5 - 14.5 % [facility] RDW-STDEV 46.1 37.1 - 48.7 fL [facility] NEUTROPHILS 75(H) 45 - 70 % [facility] LYMPHOCYTES 12(L) 16 - 45 % [facility] MONOCYTES 13 3 - 13 % [facility] - [facility] EOSINOPHILS 0 0 - 7 % [facility]OR[facility] - . [facility] BASOPHILS 0 0 - 2 % [facility] NEUTROPHIL ABSOLUTE 6.08 1.90 - 7.00 K/uL [facility] LYMPHOCYTE ABSOLUTE 0.98 0.70 - 4.50 K/uL [facility] LABORAT[facility] MONOCYTE ABSOLUTE 1.04 0.10 - 1.30 K/uL [facility] LABORAT[facility] EOSINOPHIL ABSOLUTE 0.04 0.00 - 0.70 K/uL [facility] LABORATORY [facility] BASOPHILS ABSOLUTE 0.02 0.00 - 0.20 K/uL [facility] Blood specimen (specimen) 12/21/2013 7:30 AM CRAB FISHER 12/21/2013 7:36 AM CRAB FISHER Marino Winslow MD HEMATOLOGY ORDERABLE S [facility] CLIA# [id number] [address] [place] [address] * MRSA ACTIVE SURVEILLANCE CULTURE (12/21/2013 5:38 AM CRAB FISHER) FINAL MICRO REPORT No methicillin resistant Staphylococcus aureus isolated. [facility] Specimen of unknown material (specimen) ANTERIOR NARES SWAB / Unknown 12/21/2013 5:38 AM CRAB FISHER 12/21/2013 6:24 AM CRAB FISHER Comment:NARES Rizwan Medellin NP MICROBIOLOGY - GEN ERAL ORDERABLES Performing Organization Address [facility]/ZIP Co de Phone Number [facility] [id number] [address] [place] [place] [address] * CT 2D RECONSTRUCTION (12/20/2013 12:27 PM CRAB FISHER) Anatomical Region Laterality Modality Computed Tomogra phy 12/20/2013 12:1 4 PM CRAB FISHER Impressions 12/20/2013 1:24 PM CRAB FISHER IMPRESSION: 1. Right L4 transverse process fracture. 2. Mild degenerative changes lumbar spine. Dictated from [facility] ? Narrative 12/20/2013 1:[address] 2D RECONSTRUCTION, Dec 20, 2013 12:14:46 PM INDICATION: Trauma. TECHNIQUE: Contiguous axial CT images were obtained of the thoracic and lumbar spine without contrast. Images were reconstructed in the sagittal and coronal planes and are reformatted from a CT of the chest, abdomen and pelvis. COMPARISON: None. FINDINGS: THORACIC SPINE: There are a few small Schmorl's nodes involving the mid and lower thoracic vertebral bodies. The vertebral bodies are otherwise normal in stature and alignment. There is no fracture or subluxation. No significant central canal stenosis is appreciated by CT. LUMBAR SPINE: Slight rightward subluxation of L4 on L5. Vertebral bodies are otherwise normal in stature and alignment. Displaced fracture involving the right L4 transverse process. Mild multilevel degenerative disease. Mild diffuse disc bulge at L4-L5 and L5-S1. There is mild facet arthropathy involving the lower lumbar spine. There is moderate bilateral neural foraminal stenosis at L4-L5. Procedure Note Bryan Cortés MD - 12/20/2013 CT 2D RECONSTRUCTION, Dec 20, 2013 12:14:46 PM INDICATION: Trauma. TECHNIQUE: Contiguous axial CT images were obtained of the thoracic and lumbar spine without contrast. Images were reconstructed in the sagittal and coronal planes and are reformatted from a CT of the chest, abdomen and pelvis. COMPARISON: None. FINDINGS: THORACIC SPINE: There are a few small Schmorl's nodes involving the mid and lower thoracic vertebral bodies. The vertebral bodies are otherwise normal in stature and alignment. There is no fracture or subluxation. No significant central canal stenosis is appreciated by CT. LUMBAR SPINE: Slight rightward subluxation of L4 on L5. Vertebral bodies are otherwise normal in stature and alignment. Displaced fracture involving the right L4 transverse process. Mild multilevel degenerative disease. Mild diffuse disc bulge at L4-L5 and L5-S1. There is mild facet arthropathy involving the lower lumbar spine. There is moderate bilateral neural foraminal stenosis at L4-L5. IMPRESSION IMPRESSION: 1. Right L4 transverse process fracture. 2. Mild degenerative changes lumbar spine. Dictated from [facility] Zhang Starr Jr., MD CT ORDERABLES * EKG 12-LEAD (12/20/2013 12:27 PM CRAB FISHER) 12/20/2013 12:2 7 PM CRAB FISHER Narrative INTERFACE SYSTEM - 12/20/2013 6:21 PM CRAB FISHER ? Stationary ECG Study ? [facility] ? Test Date: ?12/20/2013 12:27:47 PM ? Pat Name: ? [id number] Trauma ?Department: ?? 17 ?Room: ? 04 04 ? Gender: ? M ?Java Core Developer: ?? caraaa ? : ?1940 ? Requested by: Zhang Wilmas H ? Order Number: [id number] ?Reading MD: ?? Zhang Arevalo ? Intervals ?Pooler ? Rate: ? 89 ? P: ?57 ? MO: ? 199 ?QRS: ?87 ? QRSD: ? 97 ? T: ?71 ? QT: ? 365 ? QTc: ?412 ? Interpretive Statements SINUS RHYTHM Possible Anteroseptal Myocardial Infarction Nonspecific T Wave Abnormality Electronically Signed On 12-20-13 18:21:52 CRAB FISHER by Zhang Arevalo Procedure Note Provider, Historical - 12/20/2013 Stationary ECG [facility] [place] Test Date: 12/20/2013 12:27:47 PM Pat Name: [id number] Trauma Department: 17 Room: 04 04 Gender: M Java Core Developer: barrera : 1940 Requested by: Zhang Morataya Order Number: [id number] Reading MD: Zhang Arevalo Intervals Pooler Rate: 89 P: 57 MO: 199 QRS: 87 QRSD: 97 T: 71 QT: 365 QTc: 412 Interpretive Statements SINUS RHYTHM Possible Anteroseptal Myocardial Infarction Nonspecific T Wave Abnormality Electronically Signed On 12-20-13 18:21:52 CRAB FISHER by Zhang Arevalo Zhang Starr Jr., MD ECG ORDERABLES INTERFACE SYSTEM Refer to clinic/hospital department * CT CHEST ABDOMEN PELVIS W CONT (12/20/2013 12:26 PM CRAB FISHER) Anatomical Region Laterality Modality Chest Computed Tomogra phy 12/20/2013 12:1 4 PM CRAB FISHER Impressions 12/20/2013 1:25 PM CRAB FISHER IMPRESSION: 1. Emphysema. 2.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
--- OUTSIDE RECORDS SUMMARY | 2024-11-12 05:00 | XMS_ITS | Encounter Summary ---
Author Organization [facility] Address [address] [place] [address] Care Team Providers Care Corporate Officer Name Role Phone Sjc, External Provider Primary Care Provider U navailable Reason for Visit * Auth/Cert Specialty Diagnoses / Procedures Referred By Vidhi t Referred To Contact Critical Care Medicine [facility]itional Care [facility] [address] [place] [address] Referral ID Status Reason Start Date Expiration Date Visits Re quested Visits Authorized [id number] 1 1 Encounter Details Date Type Department Care Team (Latest Contact Info) Description 12/22/2013 8:22 AM ERCO MACHINE OPERATOR - 12/22/2013 11:59 PM [facility] Hospital Encounter [facility] Non Invasive Cardiology [address] [place] [address] Marino Winslow MD NO ADDRESS ON FILE Discharge Disposition: Home or Self Care Social [...] Procedure Name Priority Date/Time Associated Diagnosis Comments ECHO COMPLETE Routine 12/22/2013 9:01 AM ERCO MACHINE OPERATOR documented in this encounter Visit Diagnoses Not on filedocumented in this encounter Care Teams Corporate Officer Relationship Specialty Start Date End Date [facility], External Provider [address] [place] [address] PCP - General 12/20/13 documented as of this encounter
--- OUTSIDE RECORDS SUMMARY | 2024-11-12 05:00 | XMS_ITS | Summary of Care ---
Author Organization [facility] Address [address] [place] [address] Care Team Providers Care Driller And Broacher Name Role Phone None, Stated Primary Care Physician Unavailab le Encounter PFM Date(s): 08/01/20 - 08/01/20 [facility] [address] [address] Encounter Diagnosis Cellulitis(Discharge Diagnosis) - 08/01/20 Hypertension(Discharge Diagnosis) - 08/01/20 Discharge Disposition: Home Attending Physician: Garth Morales MD Medications Augmentin 875 mg-125 mg oral tablet 1 Tab, Q12H, PO, 20 Tab, 0 Number of Refills, 0, Print Requisition, TAB Start Date: 08/01/20 Stop Date: 08/11/20 Status: Ordered doxycycline hyclate 100 mg oral tablet 1 Tab, BID, PO, 20 Tab, 0 Number of Refills, 0, Print Requisition Start Date: 08/01/20 Stop Date: 08/11/20 Status: Ordered Social History Social History Type Response
--- OUTSIDE RECORDS SUMMARY | 2024-11-12 05:00 | XMS_ITS | CONTINUITY OF CARE DOCUMENT ---
Author Name francisca espinosa Address Unknown Organization [facility] Address [address] [facility] [address] [place] [address] Phone [phone] Care Team Providers Care [id number] Tank Crewman Name Role Phone Joseph LUX, Jhon Unavailable [phone] Sushil Lazo MD Unavailable [phone] INSURANCE PROVIDERS Payer name Policy type / Coverage type [place] red libertarian ID [facility] [employer] insurance company 3 [id number]
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
--- OUTSIDE RECORDS SUMMARY | 2024-11-12 05:00 | XMS_ITS | Summary of Care ---
Author Organization [facility] Address [address] [place] [address] Care Team Providers Care Knitting Supervisor Name Role Phone Mabel Mckeon Primary Care Physician Encounter PFM Date(s): 09/11/20 - 09/24/20 [facility] [address] [address] Encounter Diagnosis Ankle fracture, right(Discharge Diagnosis) - 09/12/20 Discharge Disposition: Home Attending Physician: Hernan Miramontes MD Admitting Physician: Marek Li MD Allergies, Adverse Reactions, Alerts Substance Reaction [...] AT BEDTIME, PO, Maintenance, PRN, 09/11/20 18:13:00 TAXI CAB DRIVER, 0 Number of Refills, for insomnia, ERT Start Date: 09/11/20 Status: Ordered metoprolol succinate 50 mg oral tablet, extended release 1 Tab, BID, PO, 30 Tab, 0 Number of Refills, ERT Start Date: 09/11/20 Status: Ordered MiraLax oral powder for reconstitution 17 gm, Q24H, PO, Maintenance, 0.5 packet each night, 09/11/20 18:15:00 TAXI CAB DRIVER, 0 Number of Refills Start Date: 09/11/20 Status: Ordered nystatin 100,000 units/g topical powder 1 Apply, BID, TOP, Maintenance, 09/11/20 18:11:00 TAXI CAB DRIVER, 0 Number of Refills Start Date: 09/11/20 Status: Ordered omeprazole 40 mg oral delayed release capsule 1 Cap, daily, PO, 30 Cap, 0 Number of Refills, EC CAP Start Date: 09/11/20 Status: Ordered potassium chloride 10 mEq oral tablet, extended release 1 Tab, Q24H, PO, 180 Tab, 0 Number of Refills, ERT Start Date: 09/11/20 Status: Ordered predniSONE 10 mg oral tablet see instructions, 12 Day(s), 30 Tab, 10/06/20, Take 4 tabs (40mg) po for 3 days, then 3 tabs (30mg)po for 3 days, then 2 tabs (20mg) po for 3 days then 1 tabl(10mg) po for 3 days., 0 Number of Refills, 0, Instructions Replace Required Details Route t... Start Date: 09/24/20 Stop Date: 10/06/20 Status: Ordered rosuvastatin 20 mg oral tablet [...]
== END 2024-11-05 02:18 | disposition home or self-care (01) ==
LOC: ANHED 11-05 02:05
PROVIDERS: Emergency Provider Physician Assistant
DX: L76.21 Postprocedural hemorrhage of skin and subcutaneous tissue following a dermatologic procedure (principal); I10 Essential (primary) hypertension
CPT/HCPCS: 99283; A9270

== ENCOUNTER 2024-11-26 10:19 | Emergency (ER) | payer OTHER, SELFPAY ==
--- NOTE | ~2024-11-26 | XR_ITS ---
EXAMINATION: XR ribs LT 2V DATE: 11/26/2024 10:54 INDICATION: Left rib pain. Fall. TECHNIQUE: 2 views of the left ribs on 3 radiographs were obtained. COMPARISON: None. FINDINGS: There is no left-sided pneumonia, pleural effusion, or pneumothorax. The heart size is norm al. There are fractures of left sixth and seventh ribs. IMPRESSION: 1. Fractures of left sixth and seventh ribs. Reviewed, dictated and finalized at location B. ON STATION WORKER
[2024-11-26 10:22] VITALS: BP 174/74; PULSE 79; RESP 16; TEMP 36.6; O2SAT 95
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
--- OUTSIDE RECORDS SUMMARY | 2024-11-26 10:54 | XMS_ITS | CONTINUITY OF CARE DOCUMENT ---
Author Name francisca espinosa Address Unknown Organization [facility] Address [address] [address] [facility] [address] [place] [address] Phone [phone] Care Team Providers Care Paper Cup Handle Machine Operator Name Role Phone Joseph LUX, Jhon Unavailable [phone] Sushil Lazo MD Unavailable [phone] INSURANCE PROVIDERS Payer name Policy type / Coverage type [place] red libertarian ID [facility] [employer] company 3 [id number]
[2024-11-26] MEDS: HYDROcodone/acetaminophen (*CRX) 5-325 MG TABLET 1 TAB PO (11:02)
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
--- OUTSIDE RECORDS SUMMARY | 2024-11-26 11:26 | XMS_ITS | Clinical Summary ---
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 HANDLER Gender Identity Not on file Sexual Orientation Not on file Last Filed Vital Signs Vital Sign Reading Time Taken Comments Blood Pressure 115/57 12/23/2013 9:05 AM ASSOCIATE MATERIAL HANDLER Pulse 92 12/23/2013 9:05 AM ASSOCIATE MATERIAL HANDLER Temperature 36.3 ??C (97.3 ??F) 12/23/2013 9:00 AM CS T Respiratory Rate 18 12/23/2013 9:05 AM ASSOCIATE MATERIAL HANDLER Oxygen Saturation 93% 12/23/2013 9:05 AM ASSOCIATE MATERIAL HANDLER Inhaled Oxygen Concentration - - Weight 85.7 kg (189 lb) 12/22/2013 2:00 PM ASSOCIATE MATERIAL HANDLER Height 172.7 cm (5' 8 ) 12/21/2013 1:25 PM ASSOCIATE MATERIAL HANDLER Body Mass Index 28.74 12/21/2013 1:25 PM ASSOCIATE MATERIAL HANDLER Plan of Treatment Health Maintenance Due Date [...] Advance Directives For more information, please contact: [phone] * Full Code (Latest Code Status on File) Date Activated Date Inactivated Comments 12/20/2013 4:05 PM 12/23/2013 2:51 PM Care Teams Rn Rehabilitation Relationship Specialty Start Date End Date [facility], External Provider [address] [place] [address] PCP - General 12/20/13
--- OUTSIDE RECORDS SUMMARY | 2024-11-26 11:26 | XMS_ITS | CONTINUITY OF CARE DOCUMENT ---
Author Name francisca espinosa Address Unknown Organization [facility] Address [address] [place] [address] Phone [phone] Care Team Providers Care Sagger Filler Name Role Phone Joseph LUX, Jhon Unavailable [phone] Sushil Lazo MD Unavailable [phone] INSURANCE PROVIDERS Payer name Policy type / Coverage type [place] red democrat ID [facility] [employer] insurance company 3 [id number]
[2024-11-26 12:46] VITALS: BP 160/87; PULSE 61; RESP 18; O2SAT 94
== END 2024-11-26 12:47 | disposition home or self-care (01) ==
PROVIDERS: Emergency Provider Registered Nurse
DX: S22.42XA Multiple fractures of ribs, left side, initial encounter for closed fracture (principal); I10 Essential (primary) hypertension; J44.9 Chronic obstructive pulmonary disease, unspecified; Z79.82 Long term (current) use of aspirin; W18.39XA Other fall on same level, initial encounter
CPT/HCPCS: 71100; 99283; A9270

== ENCOUNTER 2025-01-04 13:16 | Inpatient (IN) | payer MEDICARE, OTHER, SELFPAY ==
[2025-01-04] VITALS (8 sets, daily range): BP systolic 150–188; BP diastolic 52–105; PULSE 67–77; RESP 18–26; TEMP 36.4–37; O2SAT 91–100; BMI 26.2
--- NOTE | ~2025-01-04 | XR_ITS ---
Portable chest x-ray Comparison: 01/05/2025 Clinical History: Pneumothorax Findings: Stable loculated left basilar pneumothorax. Underlying COPD and/or chronic interstitial di sease present. Mild haziness left lung base present. Cardiomediastinal silhouette is stable. Bones a nd soft tissues are unremarkable. Impression: No interval change. Stable loculated left basilar pneumothorax. Stable left basilar haziness. Stable chronic COPD and/or chronic interstitial disease. Reviewed, dictated and finalized at [facility]. MACHINE OPERATOR Impression: No interval change. Stable loculated left basilar pneumothorax. Stable left basilar haziness. Stable chronic COPD and/or chronic interstitial disease.
--- NOTE | ~2025-01-04 | XR_ITS ---
Portable chest x-ray Comparison: 01/04/2025 Clinical History: Pneumothorax Findings: There is loculated left basilar pneumothorax, unchanged from prior exam. Probable underlyi ng COPD. Stable haziness left lung base. Cardiomediastinal silhouette is stable. Bones and soft tiss ues are unremarkable. Impression: Stable loculated left basilar pneumothorax with left basilar haziness. Probable underlying COPD. Reviewed, dictated and finalized at [facility]. RONMENTAL SERVICES COORDINATOR Impression: Stable loculated left basilar pneumothorax with left basilar haziness. Probable underlying COPD.
--- NOTE | ~2025-01-04 | XR_ITS ---
XR chest 1V portable Ordering provider: Mimi Olvera III, DO History: 84 years Male with . hypoxia . Comparison: None. FINDINGS: MEDIASTINUM: The cardiac silhouette is not enlarged. LUNGS: No effusions. Focal pneumothorax is seen in the left costophrenic angle. Opacification in both lung bases more on the left side. Opacification in the left midzone. Focal opacity in the right uppe r lobe which may be a nodule. OTHER: No free air under the diaphragm. Degenerative changes of the spine. IMPRESSION: Focal Pneumothorax in the left costophrenic angle. Bibasilar pneumonia more on the left side. Pneumonia in the left upper lobe. Physician: Mimi Olvera III, DO Was notified with the result of the patient at 1:49 PM on January 04, 2025 Reviewed, dictated and finalized at location A. BOTTOM ATTACHING MACHINE OPERATOR
--- NOTE | 2025-01-04 13:25 | ECG_ITS ---
Test Date: 2025-01-04 13:26:11 Measurements Intervals [place] Rate: 81 P: 100 NM: 235 QRS: -8 QRSD: 85 T: 77 QT: 364 QTc: 424 Interpretive Statements SINUS RHYTHM WITH FIRST DEGREE AV BLOCK No previous ECG available for comparison Electronically Signed On 01-05-2025 11:05:35 HEEL TOP LIFT SPLITTER by Tim Broussard M.D.
--- NOTE | 2025-01-04 13:33 | ED_ITS ---
HPI - SOB/Dyspnea General Chief Complaint: Shortness of Breath/Dyspnea Stated Complaint: sob, lung biopsy 12/30 Time Seen by Provider: 01/04/25 13:19 History of Present Illness HPI Narrative: Pt presents with SOB for the last week worse with minimal exertin and better with rest. Pt has COPD and had biopsy of left lung a week ago. Pt says he also has some broken ribs on left side. Related Data Allergies Allergy/AdvReac Type Severity Reaction Status Date / Time No Known Allergies Allergy Unknown Verified 11/26/24 11:04 Review of Systems 2 Review of Systems: All systems reviewed & are unremarkable except as noted in HPI and below PMFSH Past Medical History Medical History (Updated 01/04/25 @ 17:48 by Terri Santana APRN) Cataracts, bilateral Emphysema (subcutaneous) (surgical) resulting from a procedure COPD (chronic obstructive pulmonary disease) History of hypertension Surgical History Surgical History (Updated 01/04/25 @ 17:47 by Terri Santana APRN) History of lung biopsy History of appendectomy History of coronary artery stent placement Social History Social History Smoking packs per day: 2 Smoking cigarettes per day: 40.0 Years smoked: 65 Smoking pack-years: 130.00 Smoking status: Former smoker Smoking end date: 09/03/23 Alcohol intake: current Drinks per week: 35 Substance use: never Other substance usage details: beer/wiskey Do You Feel Safe in your Home?: Yes Lack of Transportation: No Lack of Food: Never True Current Housing: I Have Housing Concerned About Future Housing: No Difficulty Paying Gas/Electric Bills: No Difficulty Paying for Meds: No Currently Unemployed: No Education: High School Diploma/GED Difficulty w/ Childcare or Family Care: No Spiritual care concerns: No Exam 2 Const: General: healthy appearing Orientation/consciousness: patient oriented x3 Limitations: no limitations Chest: Chest palpation & inspection: normal inspection of the chest Resp: Effort & Inspection: labored, retractions and tachypneic A uscultation: clear to auscultation bilaterally Cardio: Rate: regular rate Rhythm: regular rhythm GI: Inspection: distended GI Palp: No Tenderness to palpation present (GI) Auscultation: normal bowel sounds Skin: General skin exam: normal color Wounds: no wounds Neuro: General: patient oriented x3, moves all extremities, no focal motor deficits and CN's II-XI intact bilaterally Cranial nerves: Yes Nystagmus not present Speech: normal speech Extrem: General: normal to inspection and no clubbing, cyanosis or edema Psych: Mental Status: mental status grossly normal Affect: normal affect Attitude: cooperative Course Vital Signs Vital signs: Vital Signs Temperature 97.6 F 01/04/25 13:19 Pulse Rate 77 01/04/25 13:19 Respiratory Rate 26 H 01/04/25 13:19 Blood Pressure 188/86 H 01/04/25 13:19 Pulse Oximetry 94 01/04/25 13:19 Oxygen Delivery Room Air 01/04/25 13:19 Temperature 97.6 F 01/04/25 13:19 Pulse Rate 76 01/04/25 15:06 Respiratory Rate 21 H 01/04/25 15:06 Blood Pressure 181/84 H 01/04/25 15:06 Pulse Oximetry 94 01/04/25 17:38 Oxygen Delivery Nasal Cannula 01/04/25 17:38 Oxygen Flow Rate 2 01/04/25 17:38 MDM - SOB/Dyspnea MDM Narrative Medical decision making narrative: Pt presents with SOB could be pneumothorax with hx of biopsy but could be copd exacerbation or pneumonia. will get ekg labs trop bnp and cxr. pt has small pneumo on cxr and pneumonia. [facility] so [facility] to [facility]. rocephin and zithromax given. Discussed with Terri Campos and agrees to admit. Lab Data 01/04/25 13:49 01/04/25 13:49 Labs: Lab Results 01/04/25 Range/Units 13:49 WBC 14.3 H (4.5-10.0) K/mm3 RBC 4.52 L (4.6-6.20) M/mm3 Hgb 14.9 (14.0-18.0) g/dL Hct 45.0 (42.0-52.0) % MCV 99.6 (80-100) fl MCH 33.0 (26-34) pg MCHC 33.1 (32-36) g/dl RDW 13.2 (11.5-14.5) % Plt Count 267 (150-375) k/mm3 MPV 9.1 (7.4-10.4) fl Immature Gran % (Auto) 0.3 (0-0.5) % Neut % (Auto) 78.8 H (45.5-73.1) % Lymph % (Auto) 9.7 L (18.3-44.2) % [place] % (Auto) 9.9 H (2.6-8.5) % Eos % (Auto) 1.0 (0-4.4) % Baso % (Auto) 0.3 (0.2-1.2) % Lymph # (Auto) 1.39 (0.9-3.2) K/mm3 [place] # (Auto) 1.4 H (0.1-0.6) K/mm3 Eos # (Auto) 0.2 (0-0.3) K/mm3 Baso # (Auto) 0.1 (0.0-0.1) K/mm3 Abs Immat Gran (auto) 0.05 H (0.00-0.031) K/mm3 Absolute Neuts (auto) 11.3 H (1.3-6.7) K/mm3 Absolute Nucleated RBC 0.000 (0.0-0.012) K/mm3 Nucleated RBC % 0.0 (0.0-0.2) % PT 14.1 (11.1-14.7) Seconds INR 1.1 APTT 27.4 (22.3-36.8) Seconds Sodium 130 L (137-145) mmol/L Potassium 5.1 H (3.4-5.0) mmol/L Chloride 94 L (98-107) mmol/L Carbon Dioxide 23 (22-30) mmol/L Anion Gap 13 H (4-12) mmol/L BUN 16 (9-20) mg/dL Creatinine 1.06 (0.7-1.3) mg/dL Estim Creat Clear Calc 49 ml/min Estimated GFR > 60 (59 - ) Glucose 101 (65-110) mg/dL Calcium 9.7 (8.4-10.2) mg/dL Total Bilirubin 1.1 (0.2-1.3) mg/dL AST 26 (17-59) U/L ALT 17 (6-50) U/L Alkaline Phosphatase 102 (38-126) U/L Troponin I 0.013 (0.000-0.034) ng/mL NT-Pro-B Natriuret Pep 769 H (19.9-100) pg/mL Total Protein 9.0 H (6.3-8.2) g/dL Albumin 5.0 (3.5-5.1) g/dL Influenza A (RT-PCR) Negative (Negative) Influenza B (RT-PCR) Negative (Negative) RSV (RT-PCR) Negative (Negative) SARS-CoV-2 RNA (RT-PCR) Negative (Negative) Discharge Plan Discharge Clinical Impression: Community acquired pneumonia, Pneumothorax Patient Disposition: Still a Patient Condition: Stable
[2025-01-04 14:02] LABS: Basophils Absolute Auto 0.1 K/mm3 (0.0-0.1); Basophils Percent Auto 0.3 % (0.2-1.2); Eosinophils Absolute Auto 0.2 K/mm3 (0-0.3); Hemoglobin 14.9 g/dL (14.0-18.0); Immature Granulocyte Absolute 0.05 K/mm3 (0.00-0.031); Immature Granulocyte Percent A 0.3 % (0-0.5); Lymphocytes Absolute Auto 1.39 K/mm3 (0.9-3.2); Lymphocytes Percent Auto 9.7 % (18.3-44.2); Mean Corpuscular HGB Conc 33.1 g/dl (32-36); Mean Corpuscular Volume 99.6 fl (80-100); Mean Platelet Volume 9.1 fl (7.4-10.4); Monocytes Absolute Auto 1.4 K/mm3 (0.1-0.6); Monocytes Percent Auto 9.9 % (2.6-8.5); Neutrophils Absolute Auto 11.3 K/mm3 (1.3-6.7); Neutrophils Percent Auto 78.8 % (45.5-73.1); Platelet Count Result 267 k/mm3 (150-375); Red Blood Count 4.52 M/mm3 (4.6-6.20); Red Cell Distribution Width 13.2 % (11.5-14.5); White Blood Count 14.3 K/mm3 (4.5-10.0)
[2025-01-04 14:17] LABS: Alanine Aminotransferase 17 U/L (6-50); Alkaline Phosphatase 102 U/L (38-126); Anion Gap 13 mmol/L (4-12); Aspartate Amino Transferase 26 U/L (17-59); Bilirubin,Total 1.1 mg/dL (0.2-1.3); Blood Urea Nitrogen 16 mg/dL (9-20); Calcium 9.7 mg/dL (8.4-10.2); Carbon Dioxide 23 mmol/L (22-30); Chloride 94 mmol/L (98-107); Estimated CRCL calculation 49 ml/min; Estimated Glomerular Filt Rate > 60; Glucose 101 mg/dL (65-110); Potassium 5.1 mmol/L (3.4-5.0); Sodium 130 mmol/L (137-145)
[2025-01-04 14:26] LABS: NT Pro B Type Natriuretic Pept 769 pg/mL (19.9-100); Troponin I 0.013 ng/mL (0.000-0.034)
[2025-01-04 14:35] LABS: Influenza A QL RT-PCR Negative (Negative); Influenza B QL RT-PCR Negative (Negative); RSV RNA, RT-PCR Negative (Negative); SARS-CoV-2 RNA PCR Negative (Negative)
[2025-01-04] MEDS: cefTRIAXone 2 GM/NS 100 ML 2 GM/100 ML BAG IVPB (15:03)
[2025-01-04 15:05] LABS: INR 1.1; Prothrombin Time 14.1 Seconds (11.1-14.7)
[2025-01-04 15:06] LABS: Partial Thromboplastin Time 27.4 Seconds (22.3-36.8)
--- OUTSIDE RECORDS SUMMARY | 2025-01-04 15:11 | XMS_ITS | CONTINUITY OF CARE DOCUMENT ---
Author Name francisca espinosa Address Unknown Organization [facility] Address [address] [place] [address] Phone [phone] Care Team Providers Care Channel Layer Name Role Phone Joseph LUX, Jhon Unavailable [phone] Sushil Lazo MD Unavailable [phone] INSURANCE PROVIDERS Payer name Policy type / Coverage type [place] red green party ID [facility] Commercial insurance company 3 [id number]
--- OUTSIDE RECORDS SUMMARY | 2025-01-04 15:11 | XMS_ITS | Clinical Summary ---
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 Gender Identity Not on file Sexual Orientation Not on file Last Filed Vital Signs Vital Sign Reading Time Taken Comments Blood Pressure 115/57 12/23/2013 9:05 AM CLIENT INSIGHTS CONSULTANT Pulse 92 12/23/2013 9:05 AM CLIENT INSIGHTS CONSULTANT Temperature 36.3 C (97.3 F) 12/23/2013 9:00 AM CLIENT INSIGHTS CONSULTANT Respiratory Rate 18 12/23/2013 9:05 AM CLIENT INSIGHTS CONSULTANT Oxygen Saturation 93% 12/23/2013 9:05 AM CLIENT INSIGHTS CONSULTANT Inhaled Oxygen Concentration - - Weight 85.7 kg (189 lb) 12/22/2013 2:00 PM CLIENT INSIGHTS CONSULTANT Height 172.7 cm (5' 8 ) 12/21/2013 1:25 PM CLIENT INSIGHTS CONSULTANT Body Mass Index 28.74 12/21/2013 1:25 PM CLIENT INSIGHTS CONSULTANT Plan of Treatment Health Maintenance Due Date Last Done Comments ZOSTER VACCINE (1 of 2) 1992 PNEUMOCOCCAL VACCINE 50+ YEARS (2 of 2 - PCV) 12/21/19 15 12/21/2013 RSV VACCINE (60+ or ) (1 - 1-dose 75+ series) 2017 DTAP/TDAP/TD VACCINES (2 - Td or Tdap) 12/20/2023 INFLUENZA VACCINE (#1) 2024 12/20/2013 Insurance MEDICARE PART A HOSPITAL ONLY Advance Directives For more information, please contact: [phone] * Full Code (Latest Code Status on File) Date Activated Date Inactivated Comments 12/20/2013 4:05 PM 12/23/2013 2:51 PM Care Teams Service Dog Trainer Relationship Specialty Start Date End Date [facility], External Provider [address] [place] [address] PCP - General 12/20/13
--- OUTSIDE RECORDS SUMMARY | 2025-01-04 15:38 | XMS_ITS | CONTINUITY OF CARE DOCUMENT ---
Author Name francisca espinosa Address Unknown Organization [facility] Address [address] [place] [address] Phone [phone] Care Team Providers Care Control Panel Assembler Name Role Phone Joseph LUX, Jhon Unavailable [phone] Sushil Lazo MD Unavailable [phone] INSURANCE PROVIDERS Payer name Policy type / Coverage type [place] red constitution party ID [facility] Commercial insurance company 3 [id number]
--- OUTSIDE RECORDS SUMMARY | 2025-01-04 15:38 | XMS_ITS | Clinical Summary ---
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 Gender Identity Not on file Sexual Orientation Not on file Last Filed Vital Signs Vital Sign Reading Time Taken Comments Blood Pressure 115/57 12/23/2013 9:05 AM COLD MOLDING PRESS OPERATOR Pulse 92 12/23/2013 9:05 AM COLD MOLDING PRESS OPERATOR Temperature 36.3 C (97.3 F) 12/23/2013 9:00 AM COLD MOLDING PRESS OPERATOR Respiratory Rate 18 12/23/2013 9:05 AM COLD MOLDING PRESS OPERATOR Oxygen Saturation 93% 12/23/2013 9:05 AM COLD MOLDING PRESS OPERATOR Inhaled Oxygen Concentration - - Weight 85.7 kg (189 lb) 12/22/2013 2:00 PM COLD MOLDING PRESS OPERATOR Height 172.7 cm (5' 8 ) 12/21/2013 1:25 PM COLD MOLDING PRESS OPERATOR Body Mass Index 28.74 12/21/2013 1:25 PM COLD MOLDING PRESS OPERATOR Plan of Treatment Health Maintenance Due Date [...] Advance Directives For more information, please contact: [phone] * Full Code (Latest Code Status on File) Date Activated Date Inactivated Comments 12/20/2013 4:05 PM 12/23/2013 2:51 PM Care Teams Production Supply Equipment Tender Relationship Specialty Start Date End Date [facility], External Provider [address] [place] [address] PCP - General 12/20/13
--- NOTE | 2025-01-04 15:48 | PC.NURSE ---
Patient refusing to use urinal-even if standing at bedside-taken to bathroom via wheelchair
[2025-01-04] MEDS: AZITHROMYCIN 500 MG/NS 250 ML 500 MG/250 ML BAG 250 MG IVPB (16:02)
--- NOTE | 2025-01-04 16:26 | ADMGEN ---
This patient, Christiano Saxena, was admitted to Medical Room 258-. Patient/family oriented to hospital policies and general routines including ID bracelet, bed and alarms, visiting hours, pain management, procedures, bathroom and other care routines, personal items, smoking policy, room service/diet, and visiting hours. Information on how to activate the Rapid Response Team has been discussed. Patient/Family are encouraged to report perceived risks to care and to ask questions if they do not understand what they are told or what they should do.
--- NOTE | 2025-01-04 17:41 | P.HP_ITS ---
H&P: HPI History of Present Illness Date/Time: 01/04/25 17:41 Chief Complaint: shortness of breath Narrative: This is an 84-year-old male with a significant past medical history of hypertension, former smoker, alcohol abuse who presented to the hospital with shortness of breath/ dyspnea. Patient recently had a lung biopsy done at the [facility] about 1 week ago. He states after the lung biopsy he was having some shortness of breath and trouble laying on his right side at night. He came to the hospital for further evaluation. Workup in the hospital included a chest x- ray which showed focal pneumothorax in the left costophrenic angle, bibasilar pneumonia more on the left side and pneumonia in the left upper lobe. Initial labs showed a white blood cell count of 14.3, sodium 130, potassium 5.1, chlo ride 94, anion gap 13, proBNP 769, troponin negative. Respiratory panel was obtained and was negative for influenza a and B, RSV, COVID. Blood cultures obtained and pending. EKG showed sinus rhythm with first-degree AV block with a rate of 81, QTC 424. Patient was given azithromycin and Rocephin while in the ED. he was also placed on 2 L nasal cannula due to the pneumothorax and hypoxia. Review of Systems Review of Systems: All systems reviewed & are unremarkable except as noted in HPI and below PMFSH Past Medical History Medical History (Updated 01/04/25 @ 17:48 by Terri Santana APRN) Cataracts, bilateral Emphysema (subcutaneous) (surgical) resulting from a procedure COPD (chronic obstructive pulmonary disease) History of hypertension Surgical History Surgical History (Updated 01/04/25 @ 17:47 by Terri Santana APRN) History of lung biopsy History of appendectomy History of coronary artery stent placement Social History Social History Smoking packs per day: 2 Smoking cigarettes per day: 40.0 Years smoked: 65 Smoking pack-years: 130.00 Smoking status: Former smoker Smoking end date: 09/03/23 Alcohol intake: current Drinks per week: 35 Substance use: never Other substance usage details: beer/wiskey Do You Feel Safe in your Home?: Yes Lack of Transportation: No Lack of Food: Never True Current Housing: I Have Housing Concerned About Future Housing: No Difficulty Paying Gas/Electric Bills: No Difficulty Paying for Meds: No Currently Unemployed: No Education: High School Diploma/GED Difficulty w/ Childcare or Family Care: No Spiritual care concerns: No Meds Home Medications and Allergies Home Medications ?Medication ?Instructions ?Recorded ?Confirmed ?Type hydrocodone 5 mg-acetaminophen 325 1 tablet PO Q6H PRN pain #14 tabs 11/26/24 Rx mg tablet Allergies Allergy/AdvReac Type Severity Reaction Status Date / Time No Known Allergies Allergy Unknown Verified 11/26/24 11:04 Vital Signs Vital Signs - 24 hr 01/04/25 13:19 01/04/25 13:30 01/04/25 13:31 Temperature 97.6 F Pulse Rate 77 72 76 Respiratory Rate 26 H 21 H 23 H Blood Pressure 188/86 H 188/105 H Pulse Oximetry 94 91 94 Oxygen Delivery Room Air Oxygen Flow Rate 01/04/25 13:32 01/04/25 13:50 01/04/25 13:55 Temperature Pulse Rate 69 Respiratory Rate Blood Pressure Pulse Oximetry 94 Oxygen Delivery Room Air Nasal Cannula Oxygen Flow Rate 2 01/04/25 15:06 01/04/25 17:38 Temperature Pulse Rate 76 Respiratory Rate 21 H Blood Pressure 181/84 H Pulse Oximetry 100 94 Oxygen Delivery Nasal Cannula Oxygen Flow Rate 2 Exam Narrative: General: In no acute distress, well nourished Head: atraumatic, no encephalopathy Eyes: PERRLA, sclera clear ENT: moist mucous membranes, nasal passages clear Neck: supple, no JVD, no adenopathy, trachea midline Cardiac: Normal S1 and S2. No murmur, gallops or friction rubs, peripheral pulses intact. Respiratory: mild expiratory wheezing left greater than the right, no other adventitious lung sounds Currently on 2.5 L nasal cannula Gastrointestinal: soft, non-distended, non-tender, normoactive bowel sounds. : voiding without difficulty. Extremities: moves all extremities well, no edema Skin: clean, dry, intact. No wounds or lesions. Neuro: Alert and oriented x4, cranial nerves intact, no neuro deficits. Psych: normal mood, normal affect, interactive H&P: Results Labs Labs: Short CBC 01/04/25 Range/Units 13:49 WBC 14.3 H (4.5-10.0) K/mm3 Hgb 14.9 (14.0-18.0) g/dL Hct 45.0 (42.0-52.0) % Plt Count 267 (150-375) k/mm3 BMP 01/04/25 13:49 Sodium 130 L Potassium 5.1 H Chloride 94 L Carbon Dioxide 23 BUN 16 Creatinine 1.06 Glucose 101 Calcium 9.7 Cardiac Enzymes 01/04/25 Range/Units 13:49 Troponin I 0.013 (0.000-0.034) ng/mL Liver Function 01/04/25 Range/Units 13:49 Total Bilirubin 1.1 (0.2-1.3) mg/dL AST 26 (17-59) U/L ALT 17 (6-50) U/L Alkaline Phosphatase 102 (38-126) U/L Albumin 5.0 (3.5-5.1) g/dL Imaging Chest x-ray: Radiologist's impression: XR chest 1V portable Ordering provider: Mimi Olvera III, DO History: 84 years Male with . hypoxia . Comparison: None. FINDINGS: MEDIASTINUM: The cardiac silhouette is not enlarged. LUNGS: No effusions. Focal pneumothorax is seen in the left costophrenic angle. Opacification in both lung bases more on the left side. Opacification in the left midzone. Focal opacity in the right upper lobe which may be a nodule. OTHER: No free air under the diaphragm. Degenerative changes of the spine. IMPRESSION: Focal Pneumothorax in the left costophrenic angle. Bibasilar pneumonia more on the left side. Pneumonia in the left upper lobe. Physician: Mimi Olvera III, DO Was notified with the result of the patient at 1:49 PM on January 04, 2025 Reviewed, dictated and finalized at location [facility]. MAKER Assessment and Plan Assessment and plan (1) Acute respiratory failure with hypoxia: Code(s): J96.01 - Acute respiratory failure with hypoxia Status: Acute Assessment and Plan: * currently on 2.5 L nasal cannula * continue to wean O2 for sat greater than 92% * chest x-ray shown focal pneumothorax in the left costophrenic angle, by basilar pneumonia more on the left and in the left upper lobe * chest x-ray ordered for tomorrow morning * continue Rocephin and azithromycin * DuoNebs p.r.n. (2) Community acquired pneumonia: Code(s): J18.9 - Pneumonia, unspecified organism Status: Acute Assessment and Plan: * chest x-ray showing bibasilar pneumonia in the left upper lobe * continue Rocephin and azithromycin * continue to wean O2 for sat greater than 92% (3) Pneumothorax: Code(s): J93.9 - Pneumothorax, unspecified Status: Acute Assessment and Plan: * chest x-ray showing costophrenic angle pneumothorax * will repeat chest x-ray in the morning (4) History of lung biopsy: Code(s): Z98.890 - Other specified postprocedural states Status: Acute Assessment and Plan: * patient had recent lung biopsy 1 week ago at the [facility] * see above plan of care (5) COPD (chronic obstructive pulmonary disease): Code(s): J44.9 - Chronic obstructive pulmonary disease, unspecified Status: Acute Assessment and Plan: * DuoNebs p.r.n. Quality VTE Prophylaxis VTE prophylaxis: pharmacologic ordered Hospitalist MIPS Advance Care Plan I have confirmed that the patient's Advanced Care Plan is present, code status is documented, or surrogate decision maker is listed in patient medical record.: Yes Medication Reconciliation I have utilized all available resources to obtain, update and review the patients current medications (includes all prescriptions, OTC, herbals, cannabis, and nutritional supplements).: Yes
--- NOTE | 2025-01-04 17:43 | PC.NURSE ---
Patient unable to remember medications, will have significant other bring medication bottles 01/05/2025
[2025-01-05] VITALS (9 sets, daily range): BP systolic 117–162; BP diastolic 54–69; PULSE 65–80; RESP 18–20; TEMP 36.3–37.2; O2SAT 91–100
[2025-01-05 04:22] LABS: Glucose Point of Care 93 mg/dl (65-105)
[2025-01-05 04:52] LABS: Basophils Percent Auto 0.3 % (0.2-1.2); Eosinophils Absolute Auto 0.6 K/mm3 (0-0.3); Eosinophils Percent Auto 4.9 % (0-4.4); Hematocrit 39.2 % (42.0-52.0); Hemoglobin 13.2 g/dL (14.0-18.0); Immature Granulocyte Absolute 0.06 K/mm3 (0.00-0.031); Immature Granulocyte Percent A 0.5 % (0-0.5); Lymphocytes Absolute Auto 1.28 K/mm3 (0.9-3.2); Lymphocytes Percent Auto 10.3 % (18.3-44.2); Mean Corpuscular HGB Conc 33.7 g/dl (32-36); Mean Corpuscular Hemoglobin 33.5 pg (26-34); Mean Corpuscular Volume 99.5 fl (80-100); Monocytes Absolute Auto 1.9 K/mm3 (0.1-0.6); Neutrophils Absolute Auto 8.6 K/mm3 (1.3-6.7); Platelet Count Result 216 k/mm3 (150-375); Red Blood Count 3.94 M/mm3 (4.6-6.20); Red Cell Distribution Width 13.2 % (11.5-14.5); White Blood Count 12.4 K/mm3 (4.5-10.0)
[2025-01-05 05:04] LABS: Alanine Aminotransferase 14 U/L (6-50); Albumin Level 3.9 g/dL (3.5-5.1); Alkaline Phosphatase 78 U/L (38-126); Anion Gap 11 mmol/L (4-12); Aspartate Amino Transferase 20 U/L (17-59); Bilirubin,Total 0.9 mg/dL (0.2-1.3); Blood Urea Nitrogen 19 mg/dL (9-20); Calcium 8.8 mg/dL (8.4-10.2); Carbon Dioxide 22 mmol/L (22-30); Chloride 97 mmol/L (98-107); Estimated CRCL calculation 49 ml/min; Estimated Glomerular Filt Rate > 60; Glucose 91 mg/dL (65-110); Potassium 4.3 mmol/L (3.4-5.0); Sodium 130 mmol/L (137-145)
[2025-01-05 05:17] LABS: Glucose Point of Care 104 mg/dl (65-105)
[2025-01-05] MEDS: THIAMINE HCL INJ 300 MG in SODIUM CHLORIDE 0.9% IV 100 ML 206 MG IVPB (09:29)
[2025-01-05] MEDS: MULTIVITAMINS THERAPEUTIC TAB (*BKC) 1 TABLET PO (09:29)
--- NOTE | 2025-01-05 12:28 | P.PNIM_ITS ---
Progress Note: A&P Assessment and Plan (1) Acute respiratory failure with hypoxia: Code(s): J96.01 - Acute respiratory failure with hypoxia Status: Acute Assessment and Plan: * currently on 2.5 L nasal cannula * continue to wean O2 for sat greater than 92% * chest x-ray shown focal pneumothorax in the left costophrenic angle, by basilar pneumonia more on the left and in the left upper lobe * chest x-ray ordered for tomorrow morning * continue Rocephin and azithromycin * DuoNebs p.r.n. 01/05 * No change to current treatment plan (2) Community acquired pneumonia: Code(s): J18.9 - Pneumonia, unspecified organism Status: Acute Assessment and Plan: * chest x-ray showing bibasilar pneumonia in the left upper lobe * continue Rocephin and azithromycin * continue to wean O2 for sat greater than 92% 01/05 * Will change Rocephin to Augmentin today (3) Pneumothorax: Code(s): J93.9 - Pneumothorax, unspecified Status: Acute Assessment and Plan: * chest x-ray showing costophrenic angle pneumothorax * will repeat chest x-ray in the morning 01/05 * Chest x-ray today showed stable loculated left basilar pneumothorax with left basilar haziness, probable underlying COPD. * Pulmonology consulted for further assistance * Continue to wean O2 for sat greater than 92% * Will repeat chest x-ray in the morning (4) History of lung biopsy: Code(s): Z98.890 - Other specified postprocedural states Status: Acute Assessment and Plan: * patient had recent lung biopsy 1 week ago at the [facility] * see above plan of care (5) COPD (chronic obstructive pulmonary disease): Code(s): J44.9 - Chronic obstructive pulmonary disease, unspecified Status: Acute Assessment and Plan: * DuoNebs p.r.n. 01/05 * No change to current treatment plan Time Spent With Patient Time with patient: 25 - 35 minutes Subjective Date/time seen: 01/05/25 12:28 Interval history: Interval history: This is an 84-year-old male with a significant past medical history of hypertension, former smoker, alcohol abuse who presented to the hospital with shortness of breath/ dyspnea. Patient recently had a lung biopsy done at the [facility] about 1 week ago. He states after the lung biopsy he was having some shortness of breath and trouble laying on his right side at night. He came to the hospital for further evaluation. Workup in the hospital included a chest x- ray which showed focal pneumothorax in the left costophrenic angle, bibasilar pneumonia more on the left side and pneumonia in the left upper lobe. Initial labs showed a white blood cell count of 14.3, sodium 130, potassium 5.1, chloride 94, anion gap 13, proBNP 769, troponin negative. Respiratory panel was obtained and was negative for influenza a and B, RSV, COVID. Blood cultures obtained and pending. EKG showed sinus rhythm with first-degree AV block with a rate of 81, QTC 424. Patient was given azithromycin and Rocephin while in the ED. he was also placed on 2 L nasal cannula due to the pneumothorax and hypoxia. Subjective: Patient denies any new complaints today. Labs reviewed. Patient remains on 2L NC. Review of Systems Review of Systems: All systems reviewed & are unremarkable except as noted in HPI and below Exam Narrative: General: In no acute distress, well nourished Cardiac: Normal S1 and S2. No murmur, gallops or friction rubs, peripheral pulses intact. Respiratory: diminished breath sounds on the left, no other adventitious lung sounds Currently on 2 L nasal cannula Gastrointestinal: soft, non-distended, non-tender, normoactive bowel sounds. : voiding without difficulty. Neuro: Alert and oriented x4 Objective Data Vital Signs Vital Signs: Vital Signs - 24 hr 01/04/25 13:19 01/04/25 13:30 01/04/25 13:31 Temperature 97.6 F Pulse Rate 77 72 76 Respiratory Rate 26 H 21 H 23 H Blood Pressure 188/86 H 188/105 H Pulse Oximetry 94 91 94 Oxygen Delivery Room Air Oxygen Flow Rate 01/04/25 13:32 01/04/25 13:50 01/04/25 13:55 Temperature Pulse Rate 69 Respiratory Rate Blood Pressure Pulse Oximetry 94 Oxygen Delivery Room Air Nasal Cannula Oxygen Flow Rate 2 01/04/25 15:06 01/04/25 17:38 01/04/25 20:00 Temperature 98.6 F Pulse Rate 76 67 Respiratory Rate 21 H 18 Blood Pressure 181/84 H 150/52 H Pulse Oximetry 100 94 92 Oxygen Delivery Nasal Cannula Oxygen Flow Rate 2 01/04/25 20:00 03/05/25 00:00 01/05/25 04:00 Temperature 97.7 F 98.1 F Pulse Rate 70 65 Respiratory Rate 20 20 Blood Pressure 157/69 H 152/62 H Pulse Oximetry 94 96 96 Oxygen Delivery Nasal Cannula Oxygen Flow Rate 3 01/05/25 08:00 01/05/25 08:42 Temperature 98.1 F Pulse Rate 73 Respiratory Rate 20 Blood Pressure 162/69 H Pulse Oximetry 100 96 Oxygen Delivery Nasal Cannula Oxygen Flow Rate 2 Intake/Output Intake/Output: Intake & Output 01/02/25 01/03/25 01/04/25 01/05/25 23:59 23:59 23:59 23:59 Intake Total 590 733 Balance 590 733 Meds/Results Medications: Active Medications Generic Name Dose Route Start Last Admin Trade Name Freq PRN Reason Stop Dose Admin Acetaminophen 650 mg 01/04/25 17:54 Acetaminophen 325 Mg Tablet PO Q4H PRN Mild Pain (1-3) or Fever Albuterol/Ipratropium 3 ml 01/04/25 17:53 Ipratropium 0.5 Mg/Albuterol Sulfate 2.5 Mg Ampul.Neb 3 Ml INHALATION Q6HRT PRN shortness of breath/wheezing Azithromycin 500 mg 01/05/25 16:00 Azithromycin 250 Mg Tablet PO DAILY@1600 KATHI Hydralazine HCl 10 mg 01/04/25 18:17 Hydralazine Hcl 20 Mg/Ml Vial IV PUSH Q8H PRN Blood Pressure - High Ceftriaxone Sodium 2 gm in 100 mls @ 200 mls/hr 01/05/25 15:00 Rocephin 2 Gm/Ns 100 Ml IVPB Q24H KATHI Thiamine HCl 300 mg/ Sodium 103 mls @ 206 mls/hr 01/05/25 09:00 01/05/25 10:05 Chloride IVPB Infused DAILY KATHI Infusion Lorazepam 2 mg 01/04/25 18:17 Lorazepam Inj (*Crx) 2 Mg/Ml Vial IV PUSH Q2H PRN CIWA > 15 Multivitamins Therapeutic 1 tablet 01/05/25 09:00 01/05/25 09:29 Multivitamins Therapeutic Tab (*Bkc) PO 1 tablet QAM KATHI Administration Ondansetron HCl 4 mg 01/04/25 17:54 Ondansetron Inj 4 Mg/2 Ml Vial IV PUSH Q6H PRN Nausea And Vomiting Radiology Results: ITS Impressions Chest X-Ray 01/05/25 06:43 Impression: Stable loculated left basilar pneumothorax with left basilar haziness. Probable underlying COPD. Labs Labs: Laboratory Results - last 24 hr 01/04/25 01/05/25 01/05/25 13:49 00:32 04:23 WBC 14.3 H 12.4 H RBC 4.52 L 3.94 L Hgb 14.9 13.2 L Hct 45.0 39.2 L MCV 99.6 99.5 MCH 33.0 33.5 MCHC 33.1 33.7 RDW 13.2 13.2 Plt Count 267 216 MPV 9.1 9.0 Immature Gran % (Auto) 0.3 0.5 Neut % (Auto) 78.8 H 69.0 Lymph % (Auto) 9.7 L 10.3 L [place] % (Auto) 9.9 H 15.0 H Eos % (Auto) 1.0 4.9 H Baso % (Auto) 0.3 0.3 Lymph # (Auto) 1.39 1.28 [place] # (Auto) 1.4 H 1.9 H Eos # (Auto) 0.2 0.6 H Baso # (Auto) 0.1 0.0 Abs Immat Gran (auto) 0.05 H 0.06 H Absolute Neuts (auto) 11.3 H 8.6 H Absolute Nucleated RBC 0.000 0.000 Nucleated RBC % 0.0 0.0 PT 14.1 INR 1.1 APTT 27.4 Sodium 130 L 130 L Potassium 5.1 H 4.3 Chloride 94 L 97 L Carbon Dioxide 23 22 Anion Gap 13 H 11 BUN 16 19 Creatinine 1.06 1.06 Estim Creat Clear Calc 49 49 Estimated GFR > 60 > 60 Glucose 101 91 POC Capillary Glucose 93 Calcium 9.7 8.8 Total Bilirubin 1.1 0.9 AST 26 20 ALT 17 14 Alkaline Phosphatase 102 78 Troponin I 0.013 NT-Pro-B Natriuret Pep 769 H Total Protein 9.0 H 7.0 Albumin 5.0 3.9 Influenza A (RT-PCR) Negative Influenza B (RT-PCR) Negative RSV (RT-PCR) Negative SARS-CoV-2 RNA (RT-PCR) Negative 01/05/25 04:51 WBC RBC Hgb Hct MCV MCH MCHC RDW Plt Count MPV Immature Gran % (Auto) Neut % (Auto) Lymph % (Auto) [place] % (Auto) Eos % (Auto) Baso % (Auto) Lymph # (Auto) [place] # (Auto) Eos # (Auto) Baso # (Auto) Abs Immat Gran (auto) Absolute Neuts (auto) Absolute Nucleated RBC Nucleated RBC % PT INR APTT Sodium Potassium Chloride Carbon Dioxide Anion Gap BUN Creatinine Estim Creat Clear Calc Estimated GFR Glucose POC Capillary Glucose 104 Calcium Total Bilirubin AST ALT Alkaline Phosphatase Troponin I NT-Pro-B Natriuret Pep Total Protein Albumin Influenza A (RT-PCR) Influenza B (RT-PCR) RSV (RT-PCR) SARS-CoV-2 RNA (RT-PCR) Quality VTE Prophylaxis VTE prophylaxis: pharmacologic ordered
[2025-01-05] MEDS: cefTRIAXone 2 GM/NS 100 ML 2 GM/100 ML BAG IVPB (15:01)
[2025-01-05] MEDS: AZITHROMYCIN 250 MG TABLET 500 MG PO (15:01)
--- NOTE | 2025-01-05 15:32 | PM.CNPUL ---
Assessment and Plan Assessment and plan (1) Pneumothorax: Code(s): J93.9 - Pneumothorax, unspecified Status: Acute (2) COPD (chronic obstructive pulmonary disease): Code(s): J44.9 - Chronic obstructive pulmonary disease, unspecified Status: Acute Assessment and Plan: This 84-year-old gentleman with a known history of COPD underwent a left nodule aspiration at the [facility]. The following day, he developed shortness of breath, which was attributed to a small loculated pneumothorax. Since his admission to the hospital, his respiratory status has remained stable while he is receiving treatment with antibiotics for a possible lower respiratory tract infection, along with maintenance bronchodilators and supplemental oxygen. Plan: I agree with the current treatment regimen. A repeat chest X-ray will be performed in the morning, and we will work on titrating him off supplemental oxygen. We anticipate discharging him home within the next couple of days. Additionally, consider implementing DVT prophylaxis. May switch him to an oral antibiotic such as Augmentin as there is no clear-cut evidence of pneumonia. (3) History of lung biopsy: Code(s): Z98.890 - Other specified postprocedural states Status: Acute (4) Acute respiratory failure with hypoxia: Code(s): J96.01 - Acute respiratory failure with hypoxia Status: Acute History of Present Illness History of Present Illness Consult date: 01/05/25 Chief complaint: Pneumonia/Pneumothorax Narrative: This 84-year-old gentleman presented with shortness of breath. He has a known history of COPD, which is managed with maintenance bronchodilators. He was in his usual state of health until approximately 7 days ago when he underwent a needle aspiration of a left lower lobe nodule at the [facility]. After being discharged home, he began experiencing shortness of breath, primarily with activity, but did not report any new respiratory symptoms such as changes in his chronic cough, fever, chills, hemoptysis, or night sweats. Upon evaluation in the emergency room, a localized left pneumothorax was identified at the site of the previous needle aspiration. Additionally, there was haziness observed in the left lower lobe and evidence of emphysema, although there was no clear evidence of pneumonia. The patient has been treated with antibiotics for possible pneumonia, along with supplemental oxygen and bronchodilators. He reported that his shortness of breath has not worsened since his admission to the hospital. His past medical history is also notable for coronary artery disease, for which he has undergone stent placement, and hypertension. He has a history of heavy smoking, up to 2 packs per day, but quit a year ago. The patient receives most of his medical care at the [facility]. Review of Systems Review of Systems: All systems reviewed & are unremarkable except as noted in HPI and below (HPI and below) [facility] Past Medical History Medical History (Updated 01/04/25 @ 17:48 by Terri Santana APRN) Cataracts, bilateral Emphysema (subcutaneous) (surgical) resulting from a procedure COPD (chronic obstructive pulmonary disease) History of hypertension Surgical History Surgical History (Updated 01/04/25 @ 17:47 by Terri Santana APRN) History of lung biopsy History of appendectomy History of coronary artery stent placement Social History Social History Smoking packs per day: 2 Smoking cigarettes per day: 40.0 Years smoked: 65 Smoking pack-years: 130.00 Smoking status: Former smoker Smoking end date: 09/03/23 Alcohol intake: current Drinks per week: 35 Substance use: never Other substance usage details: beer/wiskey Do You Feel Safe in your Home?: Yes Lack of Transportation: No Lack of Food: Never True Current Housing: I Have Housing Concerned About Future Housing: No Difficulty Paying Gas/Electric Bills: No Difficulty Paying for Meds: No Currently Unemployed: No Education: High School Diploma/GED Difficulty w/ Childcare or Family Care: No Spiritual care concerns: No Meds Home Medications and Allergies Home Medications ?Medication ?Instructions ?Recorded ?Confirmed ?Type hydrocodone 5 mg-acetaminophen 325 1 tablet PO Q6H PRN pain #14 tabs 11/26/24 Rx mg tablet albuterol sulfate 2.5 mg/3 mL 2.5 mg inhalation Q12H 01/05/25 01/05/25 History (0.083 %) solution for nebulization albuterol sulfate 90 mcg/actuation 2 inh inhalation ONCE PRN 01/05/25 01/05/25 History breath activated powder inhaler shortness of breath aspirin 81 mg capsule 81 mg PO DAILY 01/05/25 01/05/25 History bisoprolol fumarate 10 mg tablet 5 mg PO DAILY 01/05/25 01/05/25 History calcium 600 mg (as 1 tablet PO DAILY 01/05/25 01/05/25 History carbonate)-vitamin D3 10 mcg (400 unit) tablet (Calcium with Vitamin D) cholecalciferol (vitamin D3) 25 25 mcg PO DAILY 01/05/25 01/05/25 History mcg (1,000 unit) capsule empagliflozin 25 mg tablet 12.5 mg PO .pm 01/05/25 01/05/25 History ferrous sulfate 325 mg (65 mg 325 mg PO .PM 01/05/25 01/05/25 History iron) tablet folic acid 0.8 mg capsule 800 mcg PO DAILY 01/05/25 01/05/25 History mometasone-formoterol HFA 200 2 inh inhalation Q12H 01/05/25 01/05/25 History mcg-5 mcg/actuation aerosol inhaler (Dulera) multivitamin 1 tablet PO DAILY 01/05/25 01/05/25 History rosuvastatin 20 mg tablet (Crestor) 20 mg PO DAILY 01/05/25 01/05/25 History sacubitril 97 mg-valsartan 103 mg 1 tablet PO BID 01/05/25 01/05/25 History tablet (Entresto) spironolactone 25 mg tablet 25 mg PO .pm 01/05/25 01/05/25 History thiamine HCl (vitamin B1) 100 mg 100 mg PO .pm 01/05/25 01/05/25 History tablet tiotropium bromide 2.5 2 inh inhalation DAILY 01/05/25 01/05/25 History mcg/actuation mist for inhalation (Spiriva Respimat) Allergies Allergy/AdvReac Type Severity Reaction Status Date / Time No Known Allergies Allergy Unknown Verified 11/26/24 11:04 Vital Signs Vital Signs - 24 hr 01/04/25 17:38 01/04/25 20:00 01/04/25 20:00 Temperature 37.0 C Pulse Rate 67 Respiratory Rate 18 Blood Pressure 150/52 H Pulse Oximetry 94 92 94 Oxygen Delivery Nasal Cannula Nasal Cannula Oxygen Flow Rate 2 3 01/05/25 00:00 01/05/25 04:00 01/05/25 08:00 Temperature 36.5 C 36.7 C 36.7 C Pulse Rate 70 65 73 Respiratory Rate 20 20 20 Blood Pressure 157/69 H 152/62 H 162/69 H Pulse Oximetry 96 96 100 Oxygen Delivery Oxygen Flow Rate 01/05/25 08:42 Temperature Pulse Rate Respiratory Rate Blood Pressure Pulse Oximetry 96 Oxygen Delivery Nasal Cannula Oxygen Flow Rate 2 Exam Narrative: GENERAL APPEARANCE: Well developed, well nourished, alert and cooperative, and appears to be in no acute distress while on supplemental oxygen via nasal cannula SKIN: Inspection of the skin reveals no rashes, ulcerations or petechiae. HEENT: Sclerae anicteric and conjunctivae pink and moist. Extraocular movements were intact and pupils were equal, round, and reactive to light. The oral mucosa, hard and soft palate, tongue and posterior pharynx were normal. NECK: Supple. There was no thyroid enlargement, and no tenderness, or masses were felt. CHEST: Normal AP diameter and normal contour without any kyphoscoliosis. LUNGS: Distant breath sounds bilaterally, slightly more diminished breath sounds at left base posteriorly, no wheezing. CARDIAC: There was a regular rate and rhythm without any murmurs, gallops, rubs. ABDOMEN: Soft and nontender with normal bowel sounds. There was no organomegaly. LYMPH NODES: No lymphadenopathy was appreciated in the neck. EXTREMITIES: No cyanosis, clubbing or edema. NEUROLOGIC: Alert and oriented x 3. Normal affect. Results Laboratory Findings 01/05/25 04:23 01/05/25 04:23 ABG, PT/INR, D-dimer: PT/INR, D-dimer PT 14.1 Seconds (11.1-14.7) 01/04/25 13:49 INR 1.1 01/04/25 13:49 Abnormal lab findings: Abnormal Labs 01/04/25 01/05/25 13:49 04:23 WBC 14.3 H 12.4 H RBC 4.52 L 3.94 L Hgb 13.2 L Hct 39.2 L Neut % (Auto) 78.8 H Lymph % (Auto) 9.7 L 10.3 L [place] % (Auto) 9.9 H 15.0 H Eos % (Auto) 4.9 H [place] # (Auto) 1.4 H 1.9 H Eos # (Auto) 0.6 H Abs Immat Gran (auto) 0.05 H 0.06 H Absolute Neuts (auto) 11.3 H 8.6 H Sodium 130 L 130 L Potassium 5.1 H Chloride 94 L 97 L Anion Gap 13 H NT-Pro-B Natriuret Pep 769 H Total Protein 9.0 H
[2025-01-05 16:00] LABS: Glucose Point of Care 115 mg/dl (65-105)
[2025-01-05] MEDS: AMOXICILLIN/CLAVULANATE K 875-125 MG TAB 1 TABLET PO (20:47)
[2025-01-05] MEDS: THIAMINE HCL 100 MG TABLET PO (20:47)
[2025-01-05] MEDS: EMPAGLIFLOZIN 12.5 MG TABLET PO (20:47)
[2025-01-05] MEDS: SPIRONOLACTONE 25 MG TABLET PO (20:47)
[2025-01-05] MEDS: SACUBITRIL/VALSARTAN 97-103 MG TABLET 1 TAB PO (20:47)
[2025-01-05] MEDS: FERROUS SULFATE 325 MG TABLET DR BY MOUTH (20:47)
[2025-01-05] MEDS: FLUTICASONE/SALMETEROL 230-21 MCG INHALER 1 PUFF 2 PUFF INHALATION (21:20)
[2025-01-06] VITALS (10 sets, daily range): BP systolic 123–140; BP diastolic 48–60; PULSE 68–104; RESP 18–20; TEMP 36.3–37.2; O2SAT 85–94
[2025-01-06 05:57] LABS: Glucose Point of Care 105 mg/dl (65-105)
[2025-01-06 06:16] LABS: Basophils Percent Auto 0.4 % (0.2-1.2); Eosinophils Absolute Auto 0.8 K/mm3 (0-0.3); Eosinophils Percent Auto 8.8 % (0-4.4); Hematocrit 38.2 % (42.0-52.0); Hemoglobin 12.5 g/dL (14.0-18.0); Immature Granulocyte Absolute 0.02 K/mm3 (0.00-0.031); Immature Granulocyte Percent A 0.2 % (0-0.5); Lymphocytes Absolute Auto 1.49 K/mm3 (0.9-3.2); Lymphocytes Percent Auto 17.5 % (18.3-44.2); Mean Corpuscular HGB Conc 32.7 g/dl (32-36); Mean Corpuscular Hemoglobin 33.2 pg (26-34); Mean Corpuscular Volume 101.6 fl (80-100); Mean Platelet Volume 9.2 fl (7.4-10.4); Monocytes Absolute Auto 1.5 K/mm3 (0.1-0.6); Monocytes Percent Auto 17.7 % (2.6-8.5); Neutrophils Absolute Auto 4.7 K/mm3 (1.3-6.7); Neutrophils Percent Auto 55.4 % (45.5-73.1); Platelet Count Result 231 k/mm3 (150-375); Red Blood Count 3.76 M/mm3 (4.6-6.20); Red Cell Distribution Width 13.4 % (11.5-14.5); White Blood Count 8.5 K/mm3 (4.5-10.0)
[2025-01-06 06:26] LABS: Alanine Aminotransferase 14 U/L (6-50); Albumin Level 3.6 g/dL (3.5-5.1); Alkaline Phosphatase 72 U/L (38-126); Anion Gap 7 mmol/L (4-12); Aspartate Amino Transferase 20 U/L (17-59); Bilirubin,Total 0.5 mg/dL (0.2-1.3); Blood Urea Nitrogen 23 mg/dL (9-20); Calcium 8.9 mg/dL (8.4-10.2); Carbon Dioxide 25 mmol/L (22-30); Chloride 99 mmol/L (98-107); Estimated CRCL calculation 44 ml/min; Estimated Glomerular Filt Rate 58; Glucose 106 mg/dL (65-110); Potassium 4.3 mmol/L (3.4-5.0); Sodium 131 mmol/L (137-145)
[2025-01-06] MEDS: FLUTICASONE/SALMETEROL 230-21 MCG INHALER 1 PUFF 2 PUFF INHALATION (08:16)
[2025-01-06] MEDS: UMECLIDINIUM BROMIDE 62.5 MCG ELLIPTA 1 PUFF INHALATION (08:20)
[2025-01-06] MEDS: AMOXICILLIN/CLAVULANATE K 875-125 MG TAB 1 TABLET PO (08:39)
[2025-01-06] MEDS: ASPIRIN 81 MG ENTERIC TABLET PO (08:40)
[2025-01-06] MEDS: FOLIC ACID 0.4 MG TABLET 0.8 MG PO (08:40)
[2025-01-06] MEDS: MULTIVITAMINS THERAPEUTIC TAB (*BKC) 1 TABLET PO (08:40)
[2025-01-06] MEDS: CHOLECALCIFEROL 1,000 UNITS TABLET 1000 UNITS PO (08:40)
[2025-01-06] MEDS: ROSUVASTATIN 20 MG TABLET PO (08:40)
[2025-01-06] MEDS: THIAMINE HCL INJ 300 MG in SODIUM CHLORIDE 0.9% IV 100 ML 206 MG IVPB (08:40)
[2025-01-06] MEDS: SACUBITRIL/VALSARTAN 97-103 MG TABLET 1 TAB PO (08:40)
--- NOTE | 2025-01-06 09:30 | PM.PNPUL ---
Progress Note: A&P Assessment and Plan (1) Pneumothorax: Code(s): J93.9 - Pneumothorax, unspecified Status: Acute Assessment and Plan: This 84-year-old gentleman with a known history of COPD underwent a left nodule aspiration at the [facility]. The following day, he experienced shortness of breath, which was attributed to a small loculated pneumothorax. Since his admission to the hospital, his respiratory status has remained stable while receiving antibiotics for a possible lower respiratory tract infection, along with maintenance bronchodilators and supplemental oxygen. His respiratory status has improved over the last 24 hours. Today's chest X-ray showed an essentially unchanged pneumothorax. Plan: The patient is cleared for discharge home. He should continue with the maintenance bronchodilators prescribed by his microsystems engineer at the [facility]. A home oxygen evaluation is recommended prior to discharge. Additionally, it is advised that the patient takes Augmentin twice daily for an additional three days. The patient should follow up with his microsystems engineer at the [facility] next week and return to the hospital if he experiences increasing shortness of breath. I will sign off; feel free to call with any questions. (2) COPD (chronic obstructive pulmonary disease): Code(s): J44.9 - Chronic obstructive pulmonary disease, unspecified Status: Acute (3) History of lung biopsy: Code(s): Z98.890 - Other specified postprocedural states Status: Acute (4) Acute respiratory failure with hypoxia: Code(s): J96.01 - Acute respiratory failure with hypoxia Status: Acute Subjective Date/time seen: 01/06/25 09:30 Interval history: Patient stated he is doing better. He has less chest congestion today. No other respiratory symptoms. He remains on supplemental oxygen via nasal cannula. Eager to go home. Repeat chest x-ray today showed essentially unchanged localized pneumothorax on left Review of Systems Review of Systems: All systems reviewed & are unremarkable except as noted in HPI and below (HPI and below) Exam Narrative: GENERAL APPEARANCE: Well developed, well nourished, alert and cooperative, and appears to be in no acute distress while on supplemental oxygen via nasal cannula SKIN: Inspection of the skin reveals no rashes, ulcerations or petechiae. HEENT: Sclerae anicteric and conjunctivae pink and moist. Extraocular movements were intact and pupils were equal, round, and reactive to light. The oral mucosa, hard and soft palate, tongue and posterior pharynx were normal. NECK: Supple. There was no thyroid enlargement, and no tenderness, or masses were felt. CHEST: Normal AP diameter and normal contour without any kyphoscoliosis. LUNGS: Distant breath sounds bilaterally, slightly more diminished breath sounds at left base posteriorly, no wheezing. CARDIAC: There was a regular rate and rhythm without any murmurs, gallops, rubs. ABDOMEN: Soft and nontender with normal bowel sounds. There was no organomegaly. LYMPH NODES: No lymphadenopathy was appreciated in the neck. EXTREMITIES: No cyanosis, clubbing or edema. NEUROLOGIC: Alert and oriented x 3. Normal affect. Objective Data Vital Signs Vital Signs: Vital Signs - 24 hr 01/05/25 12:00 01/05/25 16:00 01/05/25 20:00 Temperature 36.4 C 36.3 C L 37.2 C Pulse Rate 76 72 80 Respiratory Rate 20 20 20 Blood Pressure 127/55 L 117/54 L 119/54 L Pulse Oximetry 96 96 91 Oxygen Delivery Oxygen Flow Rate 01/05/25 20:00 01/05/25 21:20 01/05/25 21:51 Temperature Pulse Rate 74 Respiratory Rate 18 Blood Pressure Pulse Oximetry 96 94 Oxygen Delivery Nasal Cannula Nasal Cannula Oxygen Flow Rate 2 1 01/06/25 00:00 01/06/25 04:00 01/06/25 08:00 Temperature 37.2 C 36.5 C 36.3 C L Pulse Rate 79 69 68 Respiratory Rate 20 18 18 Blood Pressure 140/60 123/48 L 130/59 L Pulse Oximetry 94 92 93 Oxygen Delivery Oxygen Flow Rate 01/06/25 08:00 01/06/25 08:20 01/06/25 08:20 Temperature Pulse Rate 77 Respiratory Rate 18 Blood Pressure Pulse Oximetry 93 92 Oxygen Delivery Nasal Cannula Nasal Cannula Oxygen Flow Rate 2 2 Intake/Output Intake/Output: Intake & Output 01/03/25 01/04/25 01/05/25 01/06/25 23:59 23:59 23:59 23:59 Intake Total 590 1193 420 Output Total 4 Balance 590 1189 420 Meds/Results Medications: Active Medications Generic Name Dose Route Start Last Admin Trade Name Freq PRN Reason Stop Dose Admin Acetaminophen 650 mg 01/04/25 17:54 Acetaminophen 325 Mg Tablet PO Q4H PRN Mild Pain (1-3) or Fever Albuterol/Ipratropium 3 ml 01/04/25 17:53 Ipratropium 0.5 Mg/Albuterol Sulfate 2.5 Mg Ampul.Neb 3 Ml INHALATION Q6HRT PRN shortness of breath/wheezing Amoxicillin/Clavulanate Potassium 1 tablet 01/05/25 21:00 01/06/25 08:39 Amoxicillin/Clavulanate K 875-125 Mg Tab PO 1 tablet Q12HR KATHI Administration Aspirin 81 mg 01/06/25 09:00 01/06/25 08:40 Aspirin 81 Mg Enteric Tablet PO 81 mg QAM KATHI Administration Azithromycin 500 mg 01/05/25 16:00 01/05/25 15:01 Azithromycin 250 Mg Tablet PO 500 mg DAILY@1600 KATHI Administration Empagliflozin 12.5 mg 01/05/25 21:00 01/05/25 20:47 Empagliflozin 12.5 Mg Tablet PO 12.5 mg QHS KATHI Administration Ferrous Sulfate 325 mg 01/05/25 21:00 01/05/25 20:47 Ferrous Sulfate [address] BY MOUTH 325 mg QHS KATHI Administration Folic Acid 0.8 mg 01/06/25 09:00 01/06/25 08:40 Folic Acid 0.4 Mg Tablet PO 0.8 mg QAM KATHI Administration Hydralazine HCl 10 mg 01/04/25 18:17 Hydralazine Hcl 20 Mg/Ml Vial IV PUSH Q8H PRN Blood Pressure - High Thiamine HCl 300 mg/ Sodium 103 mls @ 206 mls/hr 01/05/25 09:00 01/06/25 08:40 Chloride IVPB 206 mls/hr DAILY KATHI Administration Lorazepam 2 mg 01/04/25 18:17 Lorazepam Inj (*Crx) 2 Mg/Ml Vial IV PUSH Q2H PRN CIWA > 15 Multivitamins Therapeutic 1 tablet 01/06/25 09:00 01/06/25 08:40 Multivitamins Therapeutic Tab (*Bkc) PO 1 tablet DAILY KATHI Administration Ondansetron HCl 4 mg 01/04/25 17:54 Ondansetron Inj 4 Mg/2 Ml Vial IV PUSH Q6H PRN Nausea And Vomiting Rosuvastatin Calcium 20 mg 01/06/25 09:00 01/06/25 08:40 Rosuvastatin 20 Mg Tablet PO 20 mg DAILY KATHI Administration Sacubitril/Valsartan 1 tab 01/05/25 21:00 01/06/25 08:40 Sacubitril/Valsartan 97-103 Mg Tablet PO 1 tab Q12HR KATHI Administration Fluticasone/Salmeterol 2 puff 01/05/25 20:00 01/06/25 08:16 Fluticasone/Salmeterol 230-21 Mcg Inhaler 1 Puff INHALATION 2 puff Q12HRT KATHI Administration Spironolactone 25 mg 01/05/25 21:00 01/05/25 20:47 Spironolactone 25 Mg Tablet PO 25 mg QHS KATHI Administration Thiamine HCl 100 mg 01/05/25 21:00 01/05/25 20:47 Thiamine Hcl 100 Mg Tablet PO 100 mg QHS KATHI Administration Umeclidinium [place] 1 puff 01/06/25 08:00 01/06/25 08:20 Umeclidinium [place] 62.5 Mcg Ellipta INHALATION 1 puff DAILYRT KATHI Administration Vitamin D 1,000 units 01/06/25 09:00 01/06/25 08:40 Cholecalciferol 1,000 Units Tablet PO 1,000 units DAILY KATHI Administration Radiology Results: ITS Impressions Chest X-Ray 01/06/25 06:13 Impression: No interval change. Stable loculated left basilar pneumothorax. Stable left basilar haziness. Stable chronic COPD and/or chronic interstitial disease. Labs Labs: Laboratory Results - last 24 hr 01/05/25 01/06/25 01/06/25 15:53 05:08 05:59 WBC 8.5 RBC 3.76 L Hgb 12.5 L Hct 38.2 L MCV 101.6 H MCH 33.2 MCHC 32.7 RDW 13.4 Plt Count 231 MPV 9.2 Immature Gran % (Auto) 0.2 Neut % (Auto) 55.4 Lymph % (Auto) 17.5 L [place] % (Auto) 17.7 H Eos % (Auto) 8.8 H Baso % (Auto) 0.4 Lymph # (Auto) 1.49 [place] # (Auto) 1.5 H Eos # (Auto) 0.8 H Baso # (Auto) 0.0 Abs Immat Gran (auto) 0.02 Absolute Neuts (auto) 4.7 Absolute Nucleated RBC 0.000 Nucleated RBC % 0.0 Sodium 131 L Potassium 4.3 Chloride 99 Carbon Dioxide 25 Anion Gap 7 BUN 23 H Creatinine 1.20 Estim Creat Clear Calc 44 Estimated GFR 58 L Glucose 106 POC Capillary Glucose 115 H 105 Calcium 8.9 Total Bilirubin 0.5 AST 20 ALT 14 Alkaline Phosphatase 72 Total Protein 7.0 Albumin 3.6
--- NOTE | 2025-01-06 10:14 | HOMEO2EVAL ---
Evaluation was performed at [facility] Home Oxygen Evaluation RC: Home Oxygen (O2) Evaluation Start: 01/06/25 09:36 Freq: ONCE Status: Active Protocol: RPE Activity Type Activity Date Activity User E-sign Co-sign Detail Recorded Client Recorded Date Recorded By Document 01/06/25 09:30 [email or web address] [email or web address] 01/06/25 10:13 DJO Document 01/06/25 09:35 [email or web address] [email or web address] 01/06/25 10:13 DJO Document 01/06/25 09:40 [email or web address] [email or web address] 01/06/25 10:13 DJO Document 01/06/25 09:45 [email or web address] [email or web address] 01/06/25 10:13 DJO Document 01/06/25 09:50 [email or web address] [email or web address] 01/06/25 10:13 DJO Document 01/06/25 10:05 [email or web address] [email or web address] 01/06/25 10:13 DJO 01/06/25 01/06/25 01/06/25 09:30 09:35 09:40 Home O2 Evaluation [Oxygen] -Test Phase Resting Exercise Exercise -Oxygen Delivery Room Air Room Air Nasal Cannula -Oxygen Flow Rate (L/min) 1 [Pulse Oximetry] -Pulse Oximetry (90-100 %) 91 85 L 86 L [Pulse Rate] -Pulse Rate (60-100 beats/min) 78 102 H 103 H [Evaluation] -Activity Tolerance [Charges] -Evaluation Charges O2 Evaluation by Pulmonary 01/06/25 01/06/25 01/06/25 09:45 09:50 10:05 Home O2 Evaluation [Oxygen] -Test Phase Exercise Exercise Resting -Oxygen Delivery Nasal Cannula Nasal Cannula Room Air -Oxygen Flow Rate (L/min) 2 3 [Pulse Oximetry] -Pulse Oximetry (90-100 %) 88 L 91 91 [Pulse Rate] -Pulse Rate (60-100 beats/min) 104 H 103 H 80 [Evaluation] -Activity Tolerance Fair [Charges] -Evaluation Charges
--- NOTE | 2025-01-06 11:28 | PM.DS ---
DS: Admitting Diagnosis Discharge Date 01/06/25 Admitting Diagnosis Acute respiratory failure with hypoxia Community-acquired pneumonia Pneumothorax History of lung biopsy COPD DS: Discharge Diagnosis Discharge Diagnosis (1) Acute respiratory failure with hypoxia: Code(s): J96.01 - Acute respiratory failure with hypoxia Status: Acute (2) Community acquired pneumonia: Code(s): J18.9 - Pneumonia, unspecified organism Status: Acute (3) Pneumothorax: Code(s): J93.9 - Pneumothorax, unspecified Status: Acute (4) History of lung biopsy: Code(s): Z98.890 - Other specified postprocedural states Status: Acute (5) COPD (chronic obstructive pulmonary disease): Code(s): J44.9 - Chronic obstructive pulmonary disease, unspecified Status: Acute DS: Summary Hospital Course Reason for hospitalization: Acute respiratory failure with hypoxia Community-acquired pneumonia Pneumothorax History of lung biopsy COPD Hospital Course: This is an 84-year-old male with a significant past medical history of hypertension, former smoker, alcohol abuse who presented to the hospital with shortness of breath/ dyspnea. Patient recently had a lung biopsy done at the [facility] about 1 week ago. He states after the lung biopsy he was having some shortness of breath and trouble laying on his right side at night. He came to the hospital for further evaluation. Workup in the hospital included a chest x-ray which showed focal pneumothorax in the left costophrenic angle, bibasilar pneumonia more on the left side and pneumonia in the left upper lobe. Initial labs showed a white blood cell count of 14.3, sodium 130, potassium 5.1, chloride 94, anion gap 13, proBNP 769, troponin negative. Respiratory panel was obtained and was negative for influenza a and B, RSV, COVID. Blood cultures obtained and pending. EKG showed sinus rhythm with first-degree AV block with a rate of 81, QTC 424. Patient was given azithromycin and Rocephin while in the ED. he was also placed on 2 L nasal cannula due to the pneumothorax and hypoxia. CXR today shown chronic COPD and chronic interstitial disease, stable left basilar haziness, stable loculated left basilar pneumothorax. Patient was weaned to room air. Marketing Communications Associate consulted and cleared patient for discharge as his pneumothorax was stable on x-ray today. We did a home O2 evaluation on him and he is requiring 3L NC with activity. He will need to follow up with the [place] health systems analyst in 1 week. He is stable for discharge at this time. Final diagnosis: Acute respiratory failure with hypoxia, pneumothorax, pneumonia Status at Discharge Cognitive/behavioral status at discharge: Alert oriented x3 Functional status at discharge: independent ambulation Overall status at discharge: patient is progressing back to baseline Time Spent with Patient Time attestation: Total time spent providing and/or coordinating discharge services: Time spent: Greater than 30 minutes Exam Narrative: General: In no acute distress, well nourished Cardiac: Normal S1 and S2. No murmur, gallops or friction rubs, peripheral pulses intact. Respiratory: diminished breath sounds on the left, no other adventitious lung sounds Currently on 2 L nasal cannula Gastrointestinal: soft, non-distended, non-tender, normoactive bowel sounds. : voiding without difficulty. Neuro: Alert and oriented x4 DS: Data Data Completed and Pending Completed studies during hospitalization: chest x-ray x3 Pending studies at discharge: Blood cultures Labs on day of discharge: Labs from last 24 hours 01/06/25 01/06/25 01/05/25 05:59 05:08 15:53 WBC 8.5 RBC 3.76 L Hgb 12.5 L Hct 38.2 L MCV 101.6 H MCH 33.2 MCHC 32.7 RDW 13.4 Plt Count 231 MPV 9.2 Immature Gran % (Auto) 0.2 Neut % (Auto) 55.4 Lymph % (Auto) 17.5 L [place] % (Auto) 17.7 H Eos % (Auto) 8.8 H Baso % (Auto) 0.4 Lymph # (Auto) 1.49 [place] # (Auto) 1.5 H Eos # (Auto) 0.8 H Baso # (Auto) 0.0 Abs Immat Gran (auto) 0.02 Absolute Neuts (auto) 4.7 Absolute Nucleated RBC 0.000 Nucleated RBC % 0.0 Sodium 131 L Potassium 4.3 Chloride 99 Carbon Dioxide 25 Anion Gap 7 BUN 23 H Creatinine 1.20 Estim Creat Clear Calc 44 Estimated GFR 58 L Glucose 106 POC Capillary Glucose 105 115 H Calcium 8.9 Total Bilirubin 0.5 AST 20 ALT 14 Alkaline Phosphatase 72 Total Protein 7.0 Albumin 3.6 Preliminary micro results at discharge 01/04/25 13:44 Blood Culture - Preliminary Blood 01/04/25 13:49 Blood Culture - Preliminary Blood Procedures/Treatments: None Discharge Plan Discharge Attending physician on discharge: Lois Hewitt Consulting providers: Min Blake Discharging Clinician: Terri Santana Anticipated Discharge Date/Time: 01/06/25 11:02 Patient Disposition: Home, Self-Care Activity: as tolerated Diet: as tolerated and heart healthy Discharge Instructions: [facility]. Finish all your antibiotics as prescribed even if you are feeling better. Continue your home inhalers as previous Patient Instructions: Antibiotic Form, Amoxicillin/Clavulanate Potassium (By mouth), Azithromycin (By mouth), Traumatic Pneumothorax (DC), Bacterial Pneumonia (GEN) Patient Language: Maltese Stand Alone Forms: General Discharge Information Follow-up/Referrals: [facility] [Primary Care Provider] - 1 Week Discharge Medications: New amoxicillin-pot clavulanate 875-125 mg tablet 1 tablet PO Q12H Qty: 8 0RF azithromycin [Zithromax] 250 mg Tablet 500 mg PO DAILY@1600 Qty: 4 0RF Continued aspirin 81 mg capsule 81 mg PO DAILY bisoprolol fumarate 10 mg tablet 5 mg PO DAILY cholecalciferol (vitamin D3) 25 mcg (1,000 unit) capsule 25 mcg PO DAILY calcium carbonate-vitamin D3 [Calcium with Vitamin D] 600 mg-10 mcg (400 unit) tablet 1 tablet PO DAILY folic acid 0.8 mg capsule 800 mcg PO DAILY multivitamin Tablet 1 tablet PO DAILY sacubitril-valsartan [Entresto] 97-103 mg tablet 1 tablet PO BID ferrous sulfate 325 mg (65 mg iron) tablet 325 mg PO .PM empagliflozin 25 mg tablet 12.5 mg PO .pm rosuvastatin [Crestor] 20 mg tablet 20 mg PO DAILY spironolactone 25 mg tablet 25 mg PO .pm thiamine HCl (vitamin B1) 100 mg tablet 100 mg PO .pm Dulera 200-5 mcg/actuation HFA aerosol inhaler 2 inh inhalation Q12H Spiriva Respimat 2.5 mcg/actuation mist 2 inh inhalation DAILY albuterol sulfate 90 mcg/actuation aerosol powdr breath activated 2 inh inhalation ONCE PRN (Reason: shortness of breath) albuterol sulfate 2.5 mg /3 mL (0.083 %) solution for nebulization 2.5 mg inhalation Q12H hydrocodone-acetaminophen 5-325 mg tablet 1 tablet PO Q6H PRN (Reason: pain) Qty: 14 0RF Date of admission: 01/04/25 14:58 Primary Care Provider: [facility] Admitting Provider: Isaiah Fallon Attending physician on admission: Isaiah Fallon Condition: Improved Quality VTE Prophylaxis VTE prophylaxis: pharmacologic ordered Hospitalist MIPS Heart Failure (Exclusion) Patient has history of Heart Transplant or Left Ventricular Assistive Device?: No IF YES, STOP HERE Heart Failure (Qualifier) Patient has current or prior documentation of LVEF less than or equal to 40%, or mod/servere depressed LVSF?: Yes IF NO, STOP HERE If Yes, Heart Failure (Qualifier) Patient was prescribed or already taking an Angiotensin-Converting Enzyme (KYLAH) Inhibitor, or Antiotensin Receptor Azucena (ARB): Yes Patient was prescribed or already taking bisoprolol, carvedilol, or sustained release metoprolol succinate: Yes
== END 2025-01-06 13:57 | disposition home or self-care (01) | DRG 199 ==
LOC: ANHED 14:57 → ANH2MED 01-05 15:18
PROVIDERS: Admitting Provider Internal Medicine; Emergency Provider Emergency Medicine; Visit Provider Nurse Practitioner Acute Care
DX: J95.811 Postprocedural pneumothorax (principal); J18.9 Pneumonia, unspecified organism; J96.01 Acute respiratory failure with hypoxia; J44.0 Chronic obstructive pulmonary disease with (acute) lower respiratory infection; I25.10 Atherosclerotic heart disease of native coronary artery without angina pectoris; Z20.822 Contact with and (suspected) exposure to COVID-19; Z90.49 Acquired absence of other specified parts of digestive tract; Z95.5 Presence of coronary angioplasty implant and graft; Z87.891 Personal history of nicotine dependence
CPT/HCPCS: 36415; 71045; 80053; 82948; 83880; 84484; 85025; 85610; 85730; 87040; 87637; 93005; 94618; 94640; 99285; A9270; J0456; J0696; J3411